=== PATIENT | female | born 1970 | race Caucasian/White ===

== ENCOUNTER 2021-04-28 20:48 | Emergency (ER) | payer OTHER ==
--- OUTSIDE RECORDS SUMMARY | 2021-04-28 20:51 | XMS REPORT | Continuity of Care Document ---
:1970 Author Organization [facility] t Address [facility] [place] [address] Care Team Providers Name Role Phone Anand_F Attending Clinician Unavailable Anand_F Admitting Clinician Unavailable Payers Payer Name Policy Type Policy Number Effective Date Expiration Date S ource [employer] - [employer] [id number] () Problems This patient has no known problems. Allergies, Adverse Reactions, Alerts Allergy Allergy Status Severity Reaction(s) Onset Inactive Treating Comm ents Source Name Type Date Date Clinician Lisinopr Allergy Active [facility] Social History Smoking Status Start Date Stop Date Source Heavy Tobacco Smoker Naila Conteh [facility]kenn[facility] Medications Ordered Filled Start Stop Current Ordering Indication Dosage Frequency Signature Comments Components Source Medication Medication Date Date Medication? Clinician (SIG) Name Name lorazepam lorazepam No lorazepam [facility] 0.5 mg 0.5 mg 0.5 mg da tablet 1 tablet 1 tablet 1 Med ical tab po prn. tab po prn. tab po Group prn. sertraline sertraline No sertraline [facility] 100 mg 100 mg 100 mg da tablet Take tablet Take tablet Medical 1 tablet 1 tablet Take 1 Group every day every day tablet by oral by oral every day route. route. by oral route. atenolol 50 atenolol 50 No atenolol [facility] mg tablet mg tablet 50 mg da TAKE ONE TAKE ONE tablet Medic al (1) (1) TAKE ONE Group TABLET(S) TABLET(S) (1) BY MOUTH BY MOUTH TABLET(S) ONCE A DAY. ONCE A DAY. BY MOUTH ONCE A DAY. 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) Group Body Weight 2019-12-09 00:00:00 2080 [oz_av] [facility] BP Diastolic 2019-05-27 00:00:00 96 mm[Hg] [facility] Height 2019-05-27 00:00:00 69 [in_i] [facility] BMI (Body Mass 2019-05-27 00:00:00 19.2 kg/m2 [facility]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) Group BP Systolic 2019-05-27 00:00:00 163 mm[Hg] [facility] Body Weight 2019-05-27 00:00:00 2083 [oz_av] [facility] Procedures Procedure Date / Time Performed Performing Clinician [facility] e MAMMO, screening, 2019-05-27 00:00:00 [facility], bilateral Group Tubal [facility] Plan of Care Planned Activity Planned Date Details Comments Source Diagnostic Test 2020-08-21 lipid panel, serum [facility] Pending 00:00:00 [code = lipid panel, Group serum] Diagnostic Test 2020-08-21 CMP, serum or plasma [facility] Pending 00:00:00 [code = CMP, serum Group or plasma] Diagnostic Test 2020-08-21 hemoglobin A1c, QN, [facility] Pending 00:00:00 blood [code = Group hemoglobin A1c, QN, blood] Diagnostic Test 2020-08-21 colon cancer [facility] Pending 00:00:00 screening, stool Group [code = colon cancer screening, stool] Encounters Start End Encounter Admission Attending Care Care Encounter Source Date/Time Date/Time Type Type Clinicians Facility Department ID 2020-08-22 2020-08-22 Outpatient [facility] [id number] [facility] 10:36:00 10:36:00 [facility] 2020-08-21 2020-08-21 Outpatient [facility] [id number] [facility] 04:17:00 04:17:00 [facility]26 [facility] 2020-08-21 2020-08-21 [facility] [place] - [id number] [facility] 00:00:00 00:00:00 N[facility] Medical MD: [address] [place] [address] [address], [place] [address] , Ph. 2020-03-15 2020-03-15 Outpatient [facility] [id number] [facility] 02:20:00 02:20:00 0415 [facility] 2020-03-15 2020-03-15 Outpatient [facility]F [facility] MM[facility] [id number] [facility] 02:20:00 02:20:00 0423 [facility] 2020-03-15 2020-03-15 Outpatient [facility]_F [facility] MMG [id number] [facility] 02:20:00 02:20:00 [facility]8 [facility] 2020-02-07 2020-02-07 Outpatient [facility]_F [facility] MMG [id number] [facility] 04:02:00 04:02:00 1012 [facility] 2019-12-09 2019-12-09 Outpatient [facility]_F [facility] MMG [id number] [facility] 07:48:00 07:48:00 0813 [facility] 2019-12-09 2019-12-09 [facility] [place] - [id number] [facility] 00:00:00 00:00:00 Britton Johnson MD: [address] [place] [address], [place] [address] , Ph. 2019-05-29 2019-05-29 Outpatient [facility]F [facility] MMG [id number] [facility] 09:51:00 09:51:00 0201 Medical Group 2019-05-27 2019-05-27 Outpatient [facility]_F [facility] MMG [id number] [facility] 05:02:00 05:02:00 0130 Medical Group 2019-05-27 2019-05-27 [facility] [place] - [id number] [facility] 00:00:00 00:00:00 Britton Johnson MD: [address] [place] [address], [place] [address] , Ph. 2018-10-08 2018-10-08 Outpatient [facility]_F [facility] MMG [id number] [facility] 05:11:00 05:11:00 0129 Medical Group Results This patient has no known results.
[2021-04-29] MEDS ORDERED: ONDANSETRON 4 MG/2 ML VIAL ONE (03:07)
[2021-04-29] MEDS ORDERED: MORPHINE 4 MG/ML SYR ONE (03:07)
[2021-04-29 03:12] LABS: Urine Blood Negative (Negative); Urine Glucose Negative (Negative); Urine Protein Negative (Negative); Urine Specific Gravity <=1.005 (1.005-1.030); Urine pH 5.5 (5.0-7.0)
[2021-04-29 03:13] LABS: Hematocrit 41.3 % (36.0-45.0); Lymphocytes % 25.3 % (15.3-44.8); MPV 6.8 fL (7.6-11.3); RBC Red Blood Cell Count 4.35 M/uL (3.86-4.86)
[2021-04-29 03:36] LABS: ALT/SGPT 23 U/L (12-78); AST/SGOT 23 U/L (15-37); Albumin 3.9 g/dL (3.4-5.0); Alkaline Phosphatase 90 U/L (45-117); BUN Blood Urea Nitrogen 10 mg/dL (7-18); Bicarbonate 28 mmol/L (21-32); Bilirubin Direct < 0.1 mg/dL (0-0.2); Bilirubin Total 0.3 mg/dL (0.2-1.0); Glucose Level 101 mg/dL (74-106); Magnesium 1.9 mg/dL (1.8-2.4); NT PRO-BNP 430 pg/mL (<125); Potassium 3.8 mmol/L (3.5-5.1); Protein, Total 7.9 g/dL (6.4-8.2); Sodium Level 130 mmol/L (136-145); Troponin (Emerg Dept Use Only) < 0.02 ng/mL (0.0-0.045)
[2021-04-29 03:37] LABS: Barbiturates NEGATIVE (NEGATIVE); Benzodiazepines NEGATIVE (NEGATIVE); Cocaine NEGATIVE (NEGATIVE); METHAMPHETAM NEGATIVE (NEGATIVE); Methadone NEGATIVE (NEGATIVE); Opiates NEGATIVE (NEGATIVE); Phencyclidine NEGATIVE (NEGATIVE); THC Cannibis NEGATIVE (NEGATIVE)
[2021-04-29 04:07] LABS: SARS-COV-2 RT PCR NEGATIVE (NEGATIVE)
--- NOTE | 2021-04-29 06:40 | ER ---
Nurse's Notes [facility] Name: Hilda Yuan Age: 51 yrs Sex: Female : 1970 Arrival Date: 04/28/2021 Time: 20:51 Bed 12 Private MD: Diagnosis: Chest pain, unspecified;Palpitations Presentation: 04/28 22:53 Chief complaint: Patient states: her chest has been tight all day and her heart was bb beating too fast she is SOB and shaky. Coronavirus screen: shortness of breath. Ebola Screen: No symptoms or risks identified at this time. Initial Sepsis Screen: Does the patient meet any 2 criteria? No. Patient's initial sepsis screen is negative. Does the patient have a suspected source of infection? No. Patient's initial sepsis screen is negative. Risk Assessment: Do you want to hurt yourself or someone else? Patient reports no desire to harm self or others. Onset of symptoms was April 28, 2021. 22:53 Method Of Arrival: Ambulatory bb 22:53 Acuity: MARTIR 3 bb Triage Assessment: 22:55 General: Appears in no apparent distress. uncomfortable, Behavior is anxious. Pain: bb Denies pain. Neuro: Level of Consciousness is awake, alert, obeys commands, Oriented to person, place, time, situation. Cardiovascular: Capillary refill < 3 seconds Patient's skin is warm and dry. Rhythm is sinus rhythm. Respiratory: Reports shortness of breath Onset: The symptoms/episode began/occurred today, the patient has mild shortness of breath. GI: No signs and/or symptoms were reported involving the gastrointestinal system. Derm: Skin is pink, warm \\T\\ dry. Musculoskeletal: Circulation, motion, and sensation intact. 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 - Social history:: Smoking status: Patient reports the use of cigarette tobacco products, smokes one pack cigarettes per day. Screenin/02 02:20 Abuse screen: Denies threats or abuse. Nutritional screening: No deficits noted. bb Tuberculosis screening: No symptoms or risk factors identified. Fall Risk None identified. Assessment: 02:20 Reassessment: No changes from previously documented assessment. Patient is alert, bb oriented x 3, equal unlabored respirations, skin warm/dry/pink. see triage assessment. 03:15 Reassessment: Patient is alert, oriented x 3, equal unlabored respirations, skin bb warm/dry/pink. pt refused morphine and zofran states "I just want something to make my blood pressure go down" Dr Rizzo notified no new orders received. 03:56 Reassessment: Patient is alert, oriented x 3, equal unlabored respirations, skin bb warm/dry/pink. IV site intact, no erythema or edema noted. 06:53 Reassessment: Patient is alert, oriented x 3, equal unlabored respirations, skin bb warm/dry/pink. pt verbalized understanding of and agrees to plan of care discharge instructions given pt ambulated with steady gait to exit accompanied by spouse. Vital Signs: 04/28 22:53 BP 158 / 104; Pulse 71; Resp 18 S; Temp 98.2(O); Pulse Ox 98% on R/A; Weight 58.97 kg bb (R); Height 5 ft. 9 in. (175.26 cm) (R); Pain 0/10; 04/29 01:56 BP 181 / 96; Pulse 68; Resp 16; Temp 98.4; Pulse Ox 98% ; lt3 03:41 BP 149 / 82; Pulse 66; Resp 16; Temp 98.8; Pulse Ox 97% ; lt3 03:55 BP 125 / 86; Pulse 66; Resp 16 S; Pulse Ox 96% on R/A; bb 06:55 BP 107 / 71; Pulse 71; Resp 16 S; Pulse Ox 97% on R/A; bb 04/28 22:53 Body Mass Index 19.20 (58.97 kg, 175.26 cm) bb ED Course: 04/28 20:51 Patient arrived in ED. kc5 22:55 Triage completed. bb 22:55 Arm band placed on Patient placed in waiting room, Patient notified of wait time. bb 04/29 02:08 Chandra Rizzo MD is Attending Physician. [facility] 02:20 Patient has correct armband on for positive identification. bb 02:55 Initial lab(s) drawn, by me, sent to lab. Inserted saline lock: 22 gauge in left lt3 antecubital area, using aseptic technique. 03:03 XRAY Chest (1 view) In Process Unspecified. EDMS 03:09 Urine collected: clean catch specimen. lt3 03:21 COVID swab sent to lab. Flu and/or RSV swab sent to lab. lt3 03:21 COVID-19/FLU A+B Sent. lt3 03:32 COVID-19/FLU A+B (Document "Date of Onset" if Symptomatic) Sent. lt3 03:57 Isamar Vasquez, CHAD is Primary Nurse. bb 03:58 Magnesium Sent. bb 03:58 LFT's Sent. bb 05:51 Troponin (emerg Dept Use Only) Sent. mw2 06:41 See Montenegro MD is Referral Physician. [facility] 06:56 IV discontinued, intact, bleeding controlled, No redness/swelling at site. Pressure bb dressing applied. Administered Medications: 03:29 CANCELLED (Patient Refused): morphine 4 mg IVP once; RASS on ADMIN: Combtv4, Very bb Agttd3, Agttd2, Rstlss1, AlertClm0, Drwsy-1, Lt Sdtn-2, Mod Sdtn-3, Dp Sdtn-4, UnArsble-5 03:29 CANCELLED (Patient Refused): Zofran (Ondansetron) 4 mg IVP once; over 2 minutes bb Outcome: 06:40 Discharge ordered by . [facility] 06:56 Discharged to home ambulatory, with family. bb 06:56 Condition: stable 06:56 Discharge instructions given to patient, Instructed on discharge instructions, follow up and referral plans. Demonstrated understanding of instructions, follow-up care. 06:56 Patient left the ED. bb Signatures: Dispatcher [employer] EDIsamar Galeana, RN RN bb Maira Elena Merchant mw2 Chandra Rizzo MD MD [facility] Wendi Ross [address] lt3 Corrections: (The following items were deleted from the chart) 04/28 22:58 22:55 Allergies: NKA; bb bb
--- NOTE | 2021-04-29 06:41 | EDPHYS ---
Physician Documentation [facility] Name: Hilda Yuan Age: 51 yrs Sex: Female : 1970 Arrival Date: 04/28/2021 Time: 20:51 Bed 12 Private MD: ED Physician Chandra Rizzo HPI: 04/29 02:33 This 51 yrs old Female presents to ER via Ambulatory with complaints of Breathing mh7 Difficulty, Chest Tightness, Shortness Of Breath. 02:33 Onset: yesterday, Morning. The pain does not radiate. Associated signs and symptoms: mh7 Pertinent positives: palpitations, shortness of breath, Pertinent negatives: abdominal pain, cough, diaphoresis, dizziness, headache, lower extremity pain, lower extremity swelling, lightheadedness, nausea, near syncope, recent travel, syncope, vomiting. The chest pain is described as Tightness. Duration: The patient or guardian reports a single episode, that is still ongoing, and unchanged. Modifying factors: The symptoms are alleviated by nothing. the symptoms are aggravated by nothing. Severity of pain: At its worst the pain was moderate yesterday, in the emergency department the pain is unchanged. 02:33 The patient or guardian reports chest pain that is located primarily in the substernal mh7 area. 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 - Social history:: Smoking status: Patient reports the use of cigarette tobacco products, smokes one pack cigarettes per day. ROS: 04/29 02:33 Constitutional: Negative for fever, chills, and weight loss, Eyes: Negative for injury, mh7 pain, redness, and discharge, ENT: Negative for injury, pain, and discharge, Neck: Negative for injury, pain, and swelling, Abdomen/GI: Negative for abdominal pain, nausea, vomiting, diarrhea, and constipation, Back: Negative for injury and pain, : Negative for injury, bleeding, discharge, and swelling, MS/Extremity: Negative for injury and deformity, Skin: Negative for injury, rash, and discoloration, Neuro: Negative for headache, weakness, numbness, tingling, and seizure, Allergy/Immunology: Negative for hives, rash, and allergies, Endocrine: Negative for neck swelling, polydipsia, polyuria, polyphagia, and marked weight changes, Hematologic/Lymphatic: Negative for swollen nodes, abnormal bleeding, and unusual bruising. Psych: Positive for anxiety. Exam: 02:33 Head/Face: Normocephalic, atraumatic. Eyes: Pupils equal round and reactive to light, mh7 extra-ocular motions intact. Lids and lashes normal. Conjunctiva and sclera are non-icteric and not injected. Cornea within normal limits. Periorbital areas with no swelling, redness, or edema. Neck: Trachea midline, no thyromegaly or masses palpated, and no cervical lymphadenopathy. Supple, full range of motion without nuchal rigidity, or vertebral point tenderness. No Meningismus. Chest/axilla: Normal chest wall appearance and motion. Nontender with no deformity. No lesions are appreciated. Cardiovascular: Regular rate and rhythm with a normal S1 and S2. No gallops, murmurs, or rubs. Normal PMI, no JVD. No pulse deficits. Respiratory: Lungs have equal breath sounds bilaterally, clear to auscultation and percussion. No rales, rhonchi or wheezes noted. No increased work of breathing, no retractions or nasal flaring. Abdomen/GI: Soft, non-tender, with normal bowel sounds. No distension or tympany. No guarding or rebound. No evidence of tenderness throughout. Back: No spinal tenderness. No costovertebral tenderness. Full range of motion. Skin: Warm, dry with normal turgor. Normal color with no rashes, no lesions, and no evidence of cellulitis. MS/ Extremity: Pulses equal, no cyanosis. Neurovascular intact. Full, normal range of motion. Neuro: Awake and alert, GCS 15, oriented to person, place, time, and situation. Cranial nerves II-XII grossly intact. Motor strength 5/5 in all extremities. Sensory grossly intact. Cerebellar exam normal. Normal gait. 02:33 Constitutional: The patient appears in no acute distress, alert, awake, anxious. 02:33 Psych: Behavior/mood is cooperative, anxious, Oriented to person, place, time, Patient has no thoughts/intents to harm self or others. Judgement / Insight is normal. Memory is normal. Delusions/hallucinations are not present. Vital Signs: 04/28 22:53 BP 158 / 104; Pulse 71; Resp 18 S; Temp 98.2(O); Pulse Ox 98% on R/A; Weight 58.97 kg bb (R); Height 5 ft. 9 in. (175.26 cm) (R); Pain 0/10; 04/29 01:56 BP 181 / 96; Pulse 68; Resp 16; Temp 98.4; Pulse Ox 98% ; lt3 03:41 BP 149 / 82; Pulse 66; Resp 16; Temp 98.8; Pulse Ox 97% ; lt3 03:55 BP 125 / 86; Pulse 66; Resp 16 S; Pulse Ox 96% on R/A; bb 06:55 BP 107 / 71; Pulse 71; Resp 16 S; Pulse Ox 97% on R/A; bb 04/28 22:53 Body Mass Index 19.20 (58.97 kg, 175.26 cm) bb MDM: 06:38 Differential diagnosis: acute myocardial infarction, acute pericarditis, anxiety, mh7 coronary artery disease chest wall pain, congestive heart failure cholecystitis, Cholelithiasis costochondritis, esophagitis, gastritis, gastroesophageal reflux disease (GERD), pancreatitis, pericarditis, pneumonia, pneumothorax, pulmonary embolus. HEART Score: History: Slightly Suspicious (0), ECG: Normal (0), Age: > 45 and < 65 years (1), Risk Factors: 1 or 2 risk factors (1), [Hypertension] Troponin: < or = 1 x Normal Limit (0), Total Score = 2. The patient was not given aspirin in the Emergency Department. Patient reports taking aspirin within the past 24 hours. Data reviewed: vital signs, nurses notes, old medical records, lab test result(s), cardiac enzymes, CBC, electrolytes, urinalysis, EKG, radiologic studies, plain films. Data interpreted: Pulse oximetry: on room air is 98 %. Interpretation: normal. Counseling: I had a detailed discussion with the patient and/or guardian regarding: the historical points, exam findings, and any diagnostic results supporting the discharge/admit diagnosis, lab results, radiology results, the need for outpatient follow up, to return to the emergency department if symptoms worsen or persist or if there are any questions or concerns that arise at home. Response to treatment: the patient's symptoms have resolved after treatment, the patient's blood pressure is in an acceptable range, mental status has returned to baseline, the patient no longer shows bradycardia, the patient is not short of breath, the patient is not tachycardic, the patient's pain is gone, the patient's temperature has normalized, the patient is now symptom free, patient is well hydrated. 06:40 Patient medically screened. [facility] 04/29 02:32 Order name: Basic Metabolic Panel [facility] 04/29 02:32 Order name: CBC with Diff [facility] 04/29 02:32 Order name: LFT's [facility] 04/29 02:32 Order name: Magnesium [facility] 04/29 02:32 Order name: NT PRO-BNP; Complete Time: 04:21 [facility] 04/29 02:32 Order name: PT-INR; Complete Time: 03:19 [facility] 04/29 02:32 Order name: Troponin (emerg Dept Use Only); Complete Time: 04:21 [facility] 04/29 02:32 Order name: ETOH Level; Complete Time: 03:27 [facility] 04/29 02:32 Order name: UDS; Complete Time: 03:56 [facility] 04/29 02:33 Order name: Basic Metabolic Panel; Complete Time: 04:21 [facility] 04/29 02:33 Order name: CBC with Automated Diff; Complete Time: 03:19 [facility] 04/29 02:33 Order name: Liver (Hepatic) Function; Complete Time: 04:21 [facility] 04/29 02:33 Order name: Magnesium; Complete Time: 04:21 [facility] 04/29 02:39 Order name: Lipase; Complete Time: 03:27 [facility] 04/29 02:32 Order name: XRAY Chest (1 view) [facility] 04/29 02:32 Order name: EKG; Complete Time: 02:33 [facility] 04/29 02:32 Order name: EKG - Nurse/Tech; Complete Time: 02:57 [facility] 04/29 02:44 Order name: TSH [facility] 04/29 02:44 Order name: COVID-19/FLU A+B (Document "Date of Onset" if Symptomatic) [facility] 04/29 02:45 Order name: COVID-19/FLU A+B; Complete Time: 04:21 [facility] 04/29 03:09 Order name: D-Dimer; Complete Time: 03:19 [facility] 04/29 03:09 Order name: Thyroid Stimulating Hormone; Complete Time: 04:21 [facility] 04/29 03:11 Order name: Urine Dipstick-Ancillary; Complete Time: 03:19 [facility] 04/29 03:55 Order name: T4 Free; Complete Time: 04:21 [facility] 04/29 05:29 Order name: Troponin (emerg Dept Use Only); Complete Time: 06:36 [facility] 04/29 02:32 Order name: IV Saline Lock; Complete Time: 02:56 [facility] 04/29 02:32 Order name: Labs collected and sent; Complete Time: 02:56 [facility] 04/29 02:32 Order name: O2 Per Protocol; Complete Time: 03:58 [facility] 04/29 02:32 Order name: O2 Sat Monitoring; Complete Time: 03:58 [facility] 04/29 02:32 Order name: Urine Dipstick-Ancillary (obtain specimen); Complete Time: 03:09 [facility] Administered Medications: 03:29 CANCELLED (Patient Refused): morphine 4 mg IVP once; RASS on ADMIN: Combtv4, Very bb Agttd3, Agttd2, Rstlss1, AlertClm0, Drwsy-1, Lt Sdtn-2, Mod Sdtn-3, Dp Sdtn-4, UnArsble-5 03:29 CANCELLED (Patient Refused): Zofran (Ondansetron) 4 mg IVP once; over 2 minutes bb Disposition Summary: 04/29/21 06:40 Discharge Ordered Location: Home [facility] Problem: new [facility] Symptoms: are resolved [facility] Condition: Stable [facility] Diagnosis - Chest pain, unspecified 7 - Palpitations [facility] Followup: [facility] - With: Private Physician - When: 1 - 2 days - Reason: Worsening of condition, Recheck today's complaints, Continuance of care, Re-evaluation by your physician Followup: [facility] - With: See Montenegro MD - When: 1 - 2 days - Reason: Worsening of condition, Recheck today's complaints Discharge Instructions: - Discharge Summary Sheet [facility] - Nonspecific Chest Pain, Adult, Jieb-sf-Obpt 7 - Palpitations, Rciw-va-Cdzp [facility] Forms: - Medication Reconciliation Form [facility] - Thank You Letter [facility] - Antibiotic Education [facility] - Prescription Opioid Use [facility] Signatures: Dispatcher [employer] EDMS Isamar Vasquez RN RN bb Chandra Rizzo MD MD [facility] Corrections: (The following items were deleted from the chart) 04/28 22:58 22:55 Allergies: NKA; ingrid quintero 04/29 02:39 02:33 The patient or guardian reports chest pain that is located primarily in the [facility] anterior chest wall, bilaterally, [facility] 03:09 02:45 Thyroid Stimulating Hormone ordered. EDMS EDMS 03:09 02:45 D-DIMER+COAG.LAB.BRZ ordered. EDMO EDMS 03:29 02:40 morphine 4 mg IVP once; RASS on ADMIN: Combtv4, Very Agttd3, Agttd2, Rstlss1, bb AlertClm0, Drwsy-1, Lt Sdtn-2, Mod Sdtn-3, Dp Sdtn-4, UnArsble-5 ordered. [facility] 03:29 02:40 Zofran (Ondansetron) 4 mg IVP once; over 2 minutes ordered. [facility] ingrid
[2021-04-29 07:11] VITALS: TEMP 98.8
[2021-04-29 07:14] VITALS: BP 107/71; O2SAT 97
--- NOTE | 2021-04-29 07:35 | RAD REPORT ---
EXAM DESCRIPTION: RAD - Chest Single View - 04/29/2021 3:03 am CLINICAL HISTORY: CHEST PAIN COMPARISON: Chest Single View dated 06/25/2017; Chest Single View dated 05/24/2017; Head C Spine Cap W Con dated 05/24/2017 FINDINGS: Lines: None. Lungs: No evidence of edema or pneumonia. Emphysematous changes. Pleural: No significant pleural effusions or pneumothorax. Cardiac: The heart size is within normal limits. Bones: No acute fractures. Other: IMPRESSION: No acute cardiopulmonary disease. The patient may be a candidate for annual low dose lung cancer screening CT.
== END 2021-04-29 06:56 | disposition home or self-care (01) ==
LOC: ER 20:48
DX: R00.2 Palpitations (principal); I10 Essential (primary) hypertension; F41.9 Anxiety disorder, unspecified; F17.210 Nicotine dependence, cigarettes, uncomplicated; Z98.82 Breast implant status; Z20.822 Contact with and (suspected) exposure to COVID-19
CPT/HCPCS: 93005; 85025; 80048; 36415; 80320; 83735; 85610; 85379; 80076; 84443; 81003; 84484 ×2; 84439; 83690; 83880; 0240U; 80307; 71045; 99284; J2405

== ENCOUNTER 2022-05-30 13:32 | Emergency (ER) | payer OTHER ==
--- OUTSIDE RECORDS SUMMARY | 2022-05-30 13:34 | XMS REPORT | Continuity of Care Document ---
:1970 Author Organization [facility] t Address [facility] [place] [address] Care Team Providers Name Role Phone ALENA DUFFY Attending Clinician Unavailable Carolyn Attending Clinician Unavailable Dina Attending Clinician Unavailable Carolyn Admitting Clinician Unavailable Dina Admitting Clinician Unavailable Payers Payer Name Policy Type Policy Number Effective Date Expiration Date S ource [employer]AST - [employer] [id number] - PRIME () [employer] - [employer] [id number] () Problems This patient has no known problems. Allergies, Adverse Reactions, Alerts Allergy Allergy Status Severity Reaction(s) Onset Inactive Treating Comm ents Source Name Type Date Date Clinician Lisinopr Allergy Active [facility] [place] [facility] e [facility] Social History Smoking Status Start Date Stop Date Source Heavy Tobacco Smoker [facility] Medications Ordered Filled Start Stop Current Ordering Indication Dosage Frequency Signature Comments Components Source Medication Medication Date Date Medication? Clinician (SIG) Name Name amlodipine amlodipine No amlodipine [facility] 5 mg tablet 5 mg tablet 5 mg d a TAKE ONE TAKE ONE tablet Medic al (1) (1) TAKE ONE Group TABLET(S) TABLET(S) (1) BY MOUTH BY MOUTH TABLET(S) ONCE A DAY. ONCE A DAY. BY MOUTH ONCE A DAY. atenolol 50 atenolol 50 No atenolol [facility] mg tablet mg tablet 50 mg da TAKE ONE TAKE ONE tablet Medic al (1) (1) TAKE ONE Group TABLET(S) TABLET(S) (1) BY MOUTH BY MOUTH TABLET(S) ONCE A DAY. ONCE A DAY. BY MOUTH ONCE A DAY. lorazepam lorazepam No lorazepam [facility] 0.5 mg 0.5 mg 0.5 mg da tablet 1 tablet 1 tablet 1 Med ical tab po prn. tab po prn. tab po Group prn. sertraline sertraline No sertraline [facility] 100 mg 100 mg 100 mg da tablet Take tablet Take tablet Medical 1.5 tablet 1.5 tablet Take 1.5 Group every day every day tablet by oral by oral every day route. route. by oral route. Abilify 5 Abilify 5 No 1 Q1D Abilify 5 [facility] mg tablet mg tablet mg tablet da Take 1 Take 1 Take 1 Medical tablet tablet tablet Group every day every day every day by oral by oral by oral route for route for route for 90 days. 90 days. 90 days. amlodipine amlodipine No 1 Q1D amlodipine [facility] 5 mg tablet 5 mg tablet 5 mg d a Take 1 Take 1 tablet Medical tablet tablet Take 1 Group every day every day tablet by oral by oral every day route for route for by oral 30 days. 30 days. route for 30 days. atenolol 50 atenolol 50 No atenolol [facility] mg tablet mg tablet 50 mg da TAKE ONE TAKE ONE tablet Medic al (1) (1) TAKE ONE Group TABLET(S) TABLET(S) (1) BY MOUTH BY MOUTH TABLET(S) ONCE A DAY. ONCE A DAY. BY MOUTH ONCE A DAY. lorazepam lorazepam No lorazepam [facility] 0.5 mg 0.5 mg 0.5 mg da tablet 1 tablet 1 tablet 1 Med ical tab po prn. tab po prn. tab po Group prn. sertraline sertraline No sertraline [facility] 100 mg 100 mg 100 mg da tablet Take tablet Take tablet Medical 1.5 tablet 1.5 tablet Take 1.5 Group every day every day tablet by oral by oral every day route. route. by oral route. Immunizations Ordered Immunization Filled Immunization Date Status Commen ts Source Name Name Tdap Tdap 2020-08-22 Completed [facility] Vital Signs Vital Name Observation Time Observation Value Comments Source BP Diastolic 2022-01-24 00:00:00 80 mm[Hg] [facility] Height 2022-01-24 00:00:00 69 [in_i] [facility] BMI (Body Mass 2022-01-24 00:00:00 22 kg/m2 [facility] Medical Index) Group BP Systolic 2022-01-24 00:00:00 127 mm[Hg] [facility] Body Weight 2022-01-24 00:00:00 2384 [oz_av] [facility] BP Diastolic 2021-08-31 00:00:00 84 mm[Hg] [facility] Height 2021-08-31 00:00:00 69 [in_i] [facility] BMI (Body Mass 2021-08-31 00:00:00 20 kg/m2 [facility] Medical Index) Group BP Systolic 2021-08-31 00:00:00 135 mm[Hg] [facility] Body Weight 2021-08-31 00:00:00 2171.2 [oz_av] [facility] BMI (Body Mass 2020-08-21 00:00:00 20.7 kg/m2 [facility] Medical Index) Group BP Systolic 2020-08-21 00:00:00 132 mm[Hg] [facility] Body Weight 2020-08-21 00:00:00 2241 [oz_av] [facility] BP Diastolic 2020-08-21 00:00:00 79 mm[Hg] [facility] Height 2020-08-21 00:00:00 69 [in_i] [facility] Height 2019-12-09 00:00:00 69 [in_i] [facility] BMI (Body Mass 2019-12-09 00:00:00 19.2 kg/m2 [facility] Medical Index) Group Body Weight 2019-12-09 00:00:00 2080 [oz_av] [facility] BP Diastolic 2019-05-27 00:00:00 96 mm[Hg] [facility] Height 2019-05-27 00:00:00 69 [in_i] [facility] BMI (Body Mass 2019-05-27 00:00:00 19.2 kg/m2 [facility] BP Systolic 2019-05-27 00:00:00 163 mm[Hg] [facility] Body Weight 2019-05-27 00:00:00 2083 [oz_av] [facility] Procedures Procedure Date / Time Performed Performing Clinician [facility] e MRI, cervical spine, 2022-01-24 00:00:00 [facility] MRI, thoracic spine, 2022-01-24 00:00:00 [facility] MRI, lumbar spine, w/o 2022-01-24 00:00:00 [facility] contrast [facility] DEXA 2021-08-31 00:00:00 [facility] MAMMO, screening, 2021-08-31 00:00:00 [facility] digital, bilateral Group LDCT, chest, for lung 2021-08-31 00:00:00 [facility] cancer screening Group MAMMO, screening, 2019-05-27 00:00:00 [facility] digital, bilateral Group Tubal Ligation [facility] Delivery [facility] Breast Surgery [facility] Plan of Care Planned Activity Planned Date Details Comments Source Diagnostic Test Pending 2022-01-24 BMP, serum or [facility] 00:00:00 plasma [code = Group BMP, serum or plasma] Instructions [facility] Encounters Start End Encounter Admission Attending Care Care Encounter Source Date/Time Date/Time Type Type Clinicians Facility Department ID 2022-02-12 Inpatient TODD DUFFY [facility] [id number] [facility] 14:00:00 [id number] [facility] 2022-02-08 Inpatient TODD DUFFY [facility] [id number] [facility] 13:00:00 [id number] [facility] 2022-01-28 2022-01-28 Outpatient AyalaWero [facility] MM[facility] [id number] [facility] 00:00:00 00:00:00 1003 [facility] 2022-01-24 2022-01-24 Outpatient Hawkins_M [facility] MMG [id number] -[id number] [facility] 00:00:00 00:00:00 0929 [facility] 2022-01-24 2022-01-24 Alena [facility] [place] - [id number] [facility] 00:00:00 00:00:[address] 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 2021-10-11 2021-10-11 Outpatient Hawkins_M [facility] MMG [id number] -[id number] [facility] 00:00:00 00:00:00 0616 [facility] 2021-09-06 2021-09-06 Outpatient Hawkins_M [facility] MMG [id number] -2021 [facility] 02:21:00 02:21:00 0512 Medical Group 2021-08-31 2021-08-31 Alena Citlallikins_M MMG [place] - [id number] [facility] 00:00:00 00:00:00 Tricia Jang [address] 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 2020-08-22 2020-08-22 Outpatient Zuniga_F MM[facility] MMG [id number] [facility] 10:36:00 10:36:00 0427 Medical Group 2020-08-21 2020-08-21 Concepcion Zuniga_F MMG [place] - [id number] [facility] 00:00:00 00:00:00 Nir Jang 0426 Britton Henley Medical MD: [address] [address], [place] [address] , Ph. 2020-03-15 2020-03-15 Outpatient Zuniga_F MMG MMG [id number] [facility] 02:20:00 02:20:00 1118 Medical Group 2020-02-07 2020-02-07 Outpatient Zuniga_F MMG MMG [id number] [facility] 04:02:00 04:02:00 1012 mp Medical Group 2019-12-09 2019-12-09 Concepcion Zuniga_F MMG [place] - [id number] [facility] 00:00:00 00:00:00 Nir Jang 0813 Britton Henley Medical MD: [address] [address], [place] [address] , Ph. 2019-05-29 2019-05-29 Outpatient Zuniga_F MMG MMG [id number] [facility] 09:51:00 09:51:00 0201 mp Medical Group 2019-05-27 2019-05-27 Concepcion Zuniga_F MMG [place] - [id number] [facility] 00:00:00 00:00:00 Nir Jang 0130 Britton Henley MD: [address] [address] , Ph. 2018-10-08 2018-10-08 Outpatient Zuniga_F MMG MMG [id number] [facility] 05:11:00 05:11:00 0613 Medical Group Results This patient has no known results.
[2022-05-30] MEDS ORDERED: ONDANSETRON 4 MG/2 ML VIAL ONE (14:03)
[2022-05-30] MEDS ORDERED: MORPHINE 4 MG/ML SYR ONE (14:04)
[2022-05-30 14:07] LABS: Urine Blood Negative (Negative); Urine Glucose Negative (Negative); Urine Protein Negative (Negative); Urine pH 5.5 (5.0-7.0)
[2022-05-30 14:19] LABS: Urine Bacteria <20 /HPF (<20); Urine RBC <5 /HPF (None Seen)
[2022-05-30 14:21] LABS: Absolute Lymphocytes (CBC) 1.3 K/uL (0.7-4.9); Hematocrit 35.9 % (36.0-45.0); Lymphocytes % 14.2 % (15.3-44.8); MCV 94.4 fL (80-100); MPV 6.8 fL (7.6-11.3)
[2022-05-30 14:29] LABS: Albumin 3.8 g/dL (3.4-5.0); Bilirubin Total 0.5 mg/dL (0.2-1.0); Potassium 3.4 mmol/L (3.5-5.1); Protein, Total 7.9 g/dL (6.4-8.2)
--- NOTE | 2022-05-30 14:47 | RAD REPORT ---
EXAM DESCRIPTION: CTAbdomen Pelvis W Contrast - 05/30/2022 2:38 pm CLINICAL HISTORY: Abdominal pain. Right flank pain COMPARISON: No comparisons TECHNIQUE: Biphasic CT imaging of the abdomen and pelvis was performed with 100 ml non-ionic IV cont rast. All CT scans are performed using dose optimization technique as appropriate and may include automated exposure control or mA/KV adjustment according to patient size. FINDINGS: The lung bases are clear. The liver, spleen, pancreas, adrenal glands are within normal limits. Enhancing uroepithelium noted b ilaterally. No pyelonephritis findings. No bowel obstruction, free air, free fluid or abscess. The appendix is normal. No evidence of signi ficant lymphadenopathy. No suspicious bony findings. IMPRESSION: Findings are most compatible with ascending urinary tract infection without pyelonephrit is.
--- NOTE | 2022-05-30 15:12 | EDPHYS ---
Physician Documentation [facility] Name: Hilda Yuan Age: 52 yrs Sex: Female : 1970 Arrival Date: 05/30/2022 Time: 13:36 Bed 5 Private MD: ED Physician Brett Victoria HPI: 05/30 13:49 This 52 yrs old Female presents to ER via Ambulatory with complaints of Flank Pain. pm1 13:49 The patient complains of pain in the right low back. The pain does not radiate. Onset: pm1 The symptoms/episode began/occurred yesterday. Modifying factors: The symptoms are alleviated by nothing. the symptoms are aggravated by nothing. Associated signs and symptoms: Pertinent positives: Dysuria yesterday, Pertinent negatives: fever, nausea, vomiting. Severity of pain: in the emergency department the pain has improved Pain is sporadic right lower flank spasming. The patient has not experienced similar symptoms in the past. The patient has not recently seen a physician. RN AMBULATORY: 13:44 LMP N/A - Post-menopause ss Historical: - Allergies: 13:44 Erythromycin; vomiting; ss - PMHx: 13:44 Anxiety; Hypertension; ss - PSHx: 13:44 breast augmentation; section; dental; Ligation of fallopian tube; right arm ss surgery; - Immunization history:: Client reports receiving the 2nd dose of the Covid vaccine. - Social history:: Smoking status: Patient/guardian denies using tobacco, Stopped _ months ago 4. ROS: 13:49 Constitutional: Negative for fever, chills, and weight loss, Cardiovascular: Negative pm1 for chest pain, palpitations, and edema, Respiratory: Negative for shortness of breath, cough, wheezing, and pleuritic chest pain. 13:49 MS/Extremity: Negative for injury and deformity, Skin: Negative for injury, rash, and discoloration, Neuro: Negative for headache, weakness, numbness, tingling, and seizure. 13:49 Back: Positive for flank pain, on the right, Negative for radiated pain. 13:49 : Positive for Dysuria yesterday that has resolved. 13:49 All other systems are negative. Exam: 13:49 Constitutional: This is a well developed, well nourished patient who is awake, alert, pm1 and in no acute distress. Head/Face: Normocephalic, atraumatic. 13:49 Skin: Warm, dry with normal turgor. Normal color with no rashes, no lesions, and no evidence of cellulitis. MS/ Extremity: Pulses equal, no cyanosis. Neurovascular intact. Full, normal range of motion. 13:49 ENT: Exam is negative for acute changes, Mouth: no acute changes, Lips: normal, moist, Oral mucosa: normal, pink and intact, moist. 13:49 Cardiovascular: Exam negative for acute changes, Rate: normal, Rhythm: regular, Pulses: no pulse deficits are appreciated. 13:49 Respiratory: Exam negative for acute changes, respiratory distress, shortness of breath. 13:49 Abdomen/GI: Inspection: abdomen appears normal, Palpation: abdomen is soft and non-tender, in all quadrants. 13:49 Back: CVA tenderness, that is mild, is noted on the right, vertebral tenderness, is not appreciated. 13:49 Neuro: Exam negative for acute changes, Orientation: is normal, Mentation: is normal, Motor: is normal, moves all fours, Gait: is steady, at a normal pace, without difficulty. Vital Signs: 13:44 Pulse 68; Resp 18; Temp 98.1(TE); Pulse Ox 99% on R/A; Weight 63.5 kg; Height 5 ft. 9 ss in. (175.26 cm); Pain 0/10; 13:46 BP 134 / 94; ss 14:10 BP 115 / 79; Pulse 102; Pulse Ox 100% on R/A; ap3 13:44 Body Mass Index 20.67 (63.50 kg, 175.26 cm) MDM: 13:46 Patient medically screened. pm1 15:10 Data reviewed: vital signs. pm1 15:10 Differential diagnosis: pyelonephritis, UTI, muscle spasm, candidiasis. pm1 15:10 Counseling: I had a detailed discussion with the patient and/or guardian regarding: the pm1 historical points, exam findings, and any diagnostic results supporting the discharge/admit diagnosis, lab results, radiology results, the need for outpatient follow up, to return to the emergency department if symptoms worsen or persist or if there are any questions or concerns that arise at home. 05/30 13:46 Order name: CBC with Diff; Complete Time: 14:45 pm1 05/30 13:46 Order name: CMP; Complete Time: 14:45 pm1 05/30 13:46 Order name: Lipase; Complete Time: 14:45 pm1 05/30 13:46 Order name: Urine Microscopic Only; Complete Time: 14:45 pm1 05/30 14:08 Order name: Urine Dipstick-Ancillary; Complete Time: 14:45 EDMS 05/30 13:46 Order name: CT Abd/Pelvis - IV Contrast Only; Complete Time: 15:00 pm1 05/30 13:46 Order name: IV Saline Lock; Complete Time: 14:04 pm1 05/30 13:46 Order name: Labs collected and sent; Complete Time: 14:04 pm1 05/30 13:46 Order name: Urine Dipstick-Ancillary (obtain specimen); Complete Time: 14:04 pm1 Administered Medications: 14:04 Not Given (Patient Refused): Zofran (Ondansetron) 4 mg IVP once; over 2 minutes ap3 14:04 Not Given (Patient Refused): morphine 4 mg IVP once over 4 mins ap3 15:49 Drug: Rocephin (cefTRIAXone) 1 grams Route: IV; Rate: calculated rate; Site: left ap3 antecubital; 15:50 Follow up: IV Status: Infusion continued ap3 Disposition: 19:23 Co-signature as Attending Physician, Brett PATEL was immediately available on-site ms3 in the Emergency Department for consultation in the care of the patient. Disposition Summary: 05/30/22 15:11 Discharge Ordered Location: Home pm1 Problem: new pm1 Symptoms: have improved pm1 Condition: Stable pm1 Diagnosis - UTI/ Urinary tract infection, site not specified pm1 Followup: pm1 - With: Emergency Department - When: As needed - Reason: Worsening of condition Followup: pm1 - With: Private Physician - When: 2 - 3 days - Reason: Recheck today's complaints, Continuance of care, Re-evaluation by your physician Discharge Instructions: - Discharge Summary Sheet pm1 - Urinary Tract Infection, Adult pm1 Forms: - Medication Reconciliation Form pm1 - Thank You Letter pm1 - Antibiotic Education pm1 - Prescription Opioid Use pm1 Prescriptions: - Bactrim DS 800-160 mg Oral Tablet - take 1 tablet by ORAL route every 12 hours for 10 days; 20 tablet; Refills: 0, pm1 Product Selection Permitted Signatures: Dispatcher [facility] Helen Ledesma, RN RN ss Roland Jacobsen, SERVICE ADMINISTRATOR SERVICE ADMINISTRATOR pm1 Melissa Berry RN RN ap3 Brett Victoria DO DO ms3
--- NOTE | 2022-05-30 15:12 | ER ---
Nurse's Notes [facility] Name: Hilda Yuan Age: 52 yrs Sex: Female : 1970 Arrival Date: 05/30/2022 Time: 13:36 Bed 5 Private MD: Diagnosis: UTI/ Urinary tract infection, site not specified Presentation: 05/30 13:41 Chief complaint: Patient states: R flank pain that started last night. Pt reports she ss had UTI symptoms for a few hours 2 weeks ago. Coronavirus screen: Client denies travel out of the [place] in the last 14 days. Ebola Screen: Patient denies exposure to infectious person. Patient denies travel to an Ebola-affected area in the 21 days before illness onset. Initial Sepsis Screen: Does the patient meet any 2 criteria? No. Patient's initial sepsis screen is negative. Does the patient have a suspected source of infection? No. Patient's initial sepsis screen is negative. Risk Assessment: Do you want to hurt yourself or someone else? Patient reports no desire to harm self or others. Onset of symptoms was May 29, 2022. 13:41 Method Of Arrival: Ambulatory ss 13:41 Acuity: MARTIR 3 ss [employer]AURANT [employer] PERSON: 13:44 LMP N/A - Post-menopause ss Historical: - Allergies: 13:44 Erythromycin; vomiting; ss - PMHx: 13:44 Anxiety; Hypertension; ss - PSHx: 13:44 breast augmentation; section; dental; Ligation of fallopian tube; right arm ss surgery; - Immunization history:: Client reports receiving the 2nd dose of the Covid vaccine. - Social history:: Smoking status: Patient/guardian denies using tobacco, Stopped _ months ago 4. Screenin:11 [facility] ED Fall Risk Assessment (Adult) History of falling in the last 3 months, ap3 including since admission No falls in past 3 months (0 pts). Abuse screen: Denies threats or abuse. Nutritional screening: No deficits noted. Tuberculosis screening: No symptoms or risk factors identified. Assessment: 14:10 General: Appears in no apparent distress. comfortable, Behavior is anxious. Pain:. ap3 14:10 Pain: Complains of pain in right flank Pain began gradually, last night Is ap3 intermittent. Neuro: Level of Consciousness is awake, alert, obeys commands, Oriented to person, place, time, situation, Appropriate for age. Cardiovascular: Patient's skin is warm and dry. Respiratory: Airway is patent Respiratory effort is even, unlabored, Respiratory pattern is regular, symmetrical. Vital Signs: 13:44 Pulse 68; Resp 18; Temp 98.1(TE); Pulse Ox 99% on R/A; Weight 63.5 kg; Height 5 ft. 9 ss in. (175.26 cm); Pain 0/10; 13:46 BP 134 / 94; ss 14:10 BP 115 / 79; Pulse 102; Pulse Ox 100% on R/A; ap3 13:44 Body Mass Index 20.67 (63.50 kg, 175.26 cm) ss ED Course: 13:36 Patient arrived in ED. as 13:40 Roland Jacobsen NP is PHCP. pm1 13:40 Brett Victoria DO is Attending Physician. pm1 13:44 Triage completed. ss 13:44 Arm band placed on right wrist. ss 13:47 Melissa Berry, CHAD is Primary Nurse. ap3 14:12 Patient has correct armband on for positive identification. Bed in low position. Call ap3 light in reach. Side rails up X 1. Pulse ox on. NIBP on. Door closed. Noise minimized. 14:40 CT Abd/Pelvis - IV Contrast Only In Process Unspecified. EDMS 15:49 No provider procedures requiring assistance completed. IV discontinued, intact, ap3 bleeding controlled, No redness/swelling at site. Pressure dressing applied. Administered Medications: 14:04 Not Given (Patient Refused): Zofran (Ondansetron) 4 mg IVP once; over 2 minutes ap3 14:04 Not Given (Patient Refused): morphine 4 mg IVP once over 4 mins ap3 15:49 Drug: Rocephin (cefTRIAXone) 1 grams Route: IV; Rate: calculated rate; Site: left ap3 antecubital; 15:50 Follow up: IV Status: Infusion continued ap3 Medication: 14:11 VIS not applicable for this client. ap3 Outcome: 15:11 Discharge ordered by MD. pm1 15:49 Discharged to home ambulatory. ap3 15:49 Condition: good 15:49 Discharge instructions given to patient, Instructed on discharge instructions, follow up and referral plans. medication usage, Demonstrated understanding of instructions, follow-up care, medications, Prescriptions given X 1. 16:19 Patient left the ED. ap3 Signatures: Dispatcher [employer] EDMS Joana Shrestha Shelby, RN RN ss Roland Jacobsen, PROCESS CHECKER PROCESS CHECKER pm1 Melissa Berry RN RN ap3
[2022-05-30] MEDS ORDERED: CEFTRIAXONE 1000 MG/VIAL ONE (15:22)
[2022-05-30 16:30] VITALS: TEMP 98.1
[2022-05-30 16:46] VITALS: BP 115/79; O2SAT 100
== END 2022-05-30 16:19 | disposition home or self-care (01) ==
LOC: ER 13:32
DX: N39.0 Urinary tract infection, site not specified (principal); I10 Essential (primary) hypertension; Z88.3 Allergy status to other anti-infective agents; Z98.82 Breast implant status
CPT/HCPCS: 85025; 36415; 83690; 80053; 74177; 96374; 99284; Q9967; 81003; 81015; J2405

== ENCOUNTER 2023-03-21 13:51 | Emergency (ER) | payer OTHER ==
--- OUTSIDE RECORDS SUMMARY | 2023-03-21 13:55 | XMS REPORT | Continuity of Care Document ---
:1970 Author Organization [facility] t Address [address] [place] [address] [address] [place] [address] Care Team Providers Name Role Phone Miles Bernabe Primary Care Physician ALENA DUFFY Attending Clinician Unavailable Miles Bernabe Attending Clinician Doctor Unassigned, [place] Attending Clinician Unavailable MILES VERDUZCO Attending Clinician Unavailable Joesph Hastings MD Attending Clinician Pob, [facility] Attending Clinician Unavailable LYNDON VICNENT Attending Clinician Unavailable Lyndon Vincent MD Attending Clinician Marilia Morrissey MA Attending Clinician Unavailable CHRISTINE BRANTLEY Attending Clinician Unavailable CASSIDY ANTHONY Attending Clinician Unavailable Cassidy Montiel Attending Clinician Carolyn Attending Clinician Unavailable Dina Attending Clinician Unavailable LYNDON VINCENT Admitting Clinician Unavailable MILES VERDUZCO Admitting Clinician Unavailable CASSIDY ANTHONY Admitting Clinician Unavailable Carolyn Admitting Clinician Unavailable Dina Admitting Clinician Unavailable Payers Payer Name Policy Type Policy Number Effective Date Expiration Date Dc leesa [employer]AST - [employer] [id number] - PRIME () [employer] - [employer] [id number] () Problems This patient has no known problems. Allergies, Adverse Reactions, Alerts Allergy Allergy Status Severity Reaction(s) Onset Inactive Treating Comm ents Source Name Type Date Date Clinician ERYTHROM DRUG Active N/V Univers YCIN 10-08 ity of 00:00: [place] 00 Medical Branch Erythrom Propensi Active Nausea Univer s ycin ty to and/or 10-08 ity of adverse Vomiting 00:00: [place] reaction 00 Medical s Branch LISINOPR DRUG Active Unknown-Cmnt [place] INGREDI 07-04 ity of 00:00: Medical Branch Lisinopr Drug Active Unknown - Unive rs il Allergy See comments 07-04 ity of 00:00: 00 Medical Branch NO KNOWN Drug Active Univers ALLERGIE Class ity of S [facility] Lisinopr Allergy Active [place] [facility] Medical e Group Social History Social Habit Start Date Stop Date Quantity Comments Source History [facility] o f Housing Places [facility] Gender identity Universit y of [facility] Sexual orientation Univer sity of [facility] Exposure to 2022-09-27 2022-10-07 Not sure War of SARS-CoV-2 (event) 00:00:00 17:15:00 [facility] History SDOH 2022-10-07 2022-10-07 3 University o f Housing Unable to 00:00:00 00:00:00 [facility] edical Pay Branch History [facility] 2022-10-07 2022-10-07 3 War o f Housing Homeless 00:00:00 00:00:00 [facility] dical Last Year Branch Tobacco use and 2022-07-04 2022-07-04 Smokeless Universit y of exposure 00:00:00 00:00:00 tobacco non-user [facility] dical Branch Alcohol intake 2022-07-04 2022-07-04 4.43 /d University 00:00:00 00:00:00 [facility] History of Social 2022-07-04 2022-07-04 Univers ity of function 00:00:00 00:00:00 [facility] History of tobacco 2022-03-01 Cigarette Smoker [facility] 00:00:00 [facility] Sex Ass[birth year] At [birth year] Universit y of 00:00:00 00:00:00 [facility] Smoking Status Start Date Stop Date Source Heavy Tobacco Smoker [facility] Tobacco smoking [facility] xa consumption unknown Medical Bran ch Ex-smoker 2022-08-29 00:00:00 2022-08-29 University o [facility] [place] 00:00:00 [facility] Occasional tobacco smoker 2022-07-04 [facility]:00[facility] Ordered Filled Start Stop Current Ordering Indication Dosage Frequency Signature Comments Components Source Medication Medication Date Date Medication? Clinician (SIG) Name Name atenoloL 50 Yes [id number] 50mg Take 1 Univers mg tablet 7-10 tablet by ity o f 00:00: mouth in [place] 00 the Medical morning. Branch atenoloL 50 2022-0 Yes [id number] 50mg Take 1 Univers mg tablet 7-10 tablet by ity o f 00:00: mouth in [place] 00 the Medical morning. Branch atenoloL 50 2022-0 Yes [id number] 50mg Take 1 Univers mg tablet 7-05 tablet by ity o f 00:00: mouth in [place] 00 the Medical morning. Branch atenoloL 50 0 Yes [id number] 50mg Take 1 Univers mg tablet 7-05 tablet by ity o f 00:00: mouth in [place] 00 the Medical morning. Branch atenoloL 50 2022-0 2022- No [id number] 50mg Take 1 Univers mg tablet 7-05 07-10 tablet by ity of 00:00: 00:00 mouth in [place] 00 :00 the Medical morning. Branch ARIPiprazol 2022-0 2022- No 5mg Take 1 Uni vers e 5 mg 6-13 06-13 tablet by ity of tablet 14:05: 00:00 mouth in [place] 51 :00 the Medical morning. Branch ARIPiprazol 2022-0 2022- No 5mg Take 1 Uni vers e 5 mg 6-13 06-13 tablet by ity of tablet 14:05: 00:00 mouth in [place] 51 :00 the Medical morning. Branch naproxen 2022-0 2022- No [id number] 500mg Take 1 U nivers 500 mg -04 01-23 tablet by ity of tablet 00:00: 04:59 mouth in [place] 00 :00 the [facility] Branch and 1 tablet in the evening. Take with meals. Do all this for 10 days. HYDROcodone 0 3- No 4647 1{tbl} Take 1 U nivers -acetaminop 5-12 05-20 tablet by it y of hen 5-325 00:00: 04:59 mouth [place] mg tablet 00 :00 every 4 Medical (four) Branch hours as needed for Pain (scale 4-6) for up to 7 days. Indication s: acute pain LORazepam 2022-0 Yes lorazepam Uni vers 0.5 mg 4-10 0.5 mg ity of tablet 14:46: tablet [address] LORazepam 2022-0 Yes lorazepam Uni vers 0.5 mg 4-10 0.5 mg ity of tablet 14:46: tablet [address] LORazepam 2022-0 Yes lorazepam Uni vers 0.5 mg 4-10 0.5 mg ity of tablet 14:46: tablet [address] LORazepam 3-0 Yes lorazepam Uni vers 0.5 mg 4-10 0.5 mg ity of tablet 14:46: tablet [address] LORazepam 3-0 Yes lorazepam Uni vers 0.5 mg 4-10 0.5 mg ity of tablet 14:46: tablet [address] LORazepam 3-0 Yes lorazepam Uni vers 0.5 mg 4-10 0.5 mg ity of tablet 14:46: tablet [address] LORazepam 3-0 Yes lorazepam Uni vers 0.5 mg 4-10 0.5 mg ity of tablet 14:46: tablet [address] LORazepam 3-0 Yes lorazepam Uni vers 0.5 mg 4-10 0.5 mg ity of tablet 14:46: tablet [address] LORazepam 3-0 Yes lorazepam Uni vers 0.5 mg 4-10 0.5 mg ity of tablet 14:46: tablet [address] LORazepam 3-0 Yes lorazepam Uni vers 0.5 mg 4-10 0.5 mg ity of tablet 14:46: tablet [address] LORazepam 3-0 Yes lorazepam Uni vers 0.5 mg 4-10 0.5 mg ity of tablet 14:46: tablet [address] LORazepam 2022-0 Yes lorazepam Uni vers 0.5 mg 4-10 0.5 mg ity of tablet 14:46: tablet [address] LORazepam 3-0 Yes lorazepam Uni vers 0.5 mg 4-10 0.5 mg ity of tablet 14:46: tablet [address] LORazepam 2022-0 Yes lorazepam Uni vers 0.5 mg 4-10 0.5 mg ity of tablet 14:46: tablet [address] LORazepam 2022-0 Yes lorazepam Uni vers 0.5 mg 4-10 0.5 mg ity of tablet 14:46: tablet [address] LORazepam 2022-0 Yes lorazepam Uni vers 0.5 mg 4-10 0.5 mg ity of tablet 14:46: tablet [address] LORazepam 2022-0 Yes lorazepam Uni vers 0.5 mg 4-10 0.5 mg ity of tablet 14:46: tablet [address] LORazepam 2022-0 Yes lorazepam Uni vers 0.5 mg 4-10 0.5 mg ity of tablet 14:46: tablet [address] LORazepam 3-0 Yes lorazepam Uni vers 0.5 mg 4-10 0.5 mg ity of tablet 14:46: tablet [address] LORazepam 3-0 Yes lorazepam Uni vers 0.5 mg 4-10 0.5 mg ity of tablet 14:46: tablet [address] LORazepam 3-0 Yes lorazepam Uni vers 0.5 mg 4-10 0.5 mg ity of tablet 14:46: tablet [address] LORazepam 3-0 Yes lorazepam Uni vers 0.5 mg 4-10 0.5 mg ity of tablet 14:46: tablet [address] LORazepam 3-0 Yes lorazepam Uni vers 0.5 mg 4-10 0.5 mg ity of tablet 14:46: tablet [address] atenoloL 50 2022-0 Yes [id number] 50mg Take 1 Univers mg tablet 3-10 tablet by ity o f 00:00: mouth in [place] 00 the [facility] [place] atenoloL 50 2022-0 Yes [id number] 50mg Take 1 Univers mg tablet 3-10 tablet by ity o f 00:00: mouth in [place] 00 the Medical morning. Branch atenoloL 50 3-0 Yes [id number] 50mg Take 1 Univers mg tablet 3-10 tablet by ity o f 00:00: mouth in [place] the Medical morning. Branch atenoloL 50 3-0 Yes [id number] 50mg Take 1 Univers mg tablet 3-10 tablet by ity o f 00:00: mouth in [place] the Medical morning. Branch atenoloL 50 3-0 Yes [id number] 50mg Take 1 Univers mg tablet 3-10 tablet by ity o f 00:00: mouth in [place] the Medical morning. Branch atenoloL 50 3-0 Yes [id number] 50mg Take 1 Univers mg tablet 3-10 tablet by ity o f 00:00: mouth in [place] the Medical morning. Branch atenoloL 50 3-0 Yes [id number] 50mg Take 1 Univers mg tablet 3-10 tablet by ity o f 00:00: mouth in [place] the Medical morning. Branch atenoloL 50 3-0 Yes [id number] 50mg Take 1 Univers mg tablet 3-10 tablet by ity o f 00:00: mouth in [place] the Medical morning. Branch atenoloL 50 3-0 Yes [id number] 50mg Take 1 Univers mg tablet 3-10 tablet by ity o f 00:00: mouth in [place] the Medical morning. Branch atenoloL 50 3-0 Yes [id number] 50mg Take 1 Univers mg tablet 3-10 tablet by ity o f 00:00: mouth in [place] the Medical morning. Branch atenoloL 50 3-0 Yes [id number] 50mg Take 1 Univers mg tablet 3-10 tablet by ity o f 00:00: mouth in [place] the Medical morning. Branch atenoloL 50 2023-0 Yes [id number] 50mg Take 1 Univers mg tablet 3-10 tablet by ity o f 00:00: mouth in [place] the Medical morning. Branch atenoloL 50 3-0 Yes [id number] 50mg Take 1 Univers mg tablet 3-10 tablet by ity o f 00:00: mouth in [place] the Medical morning. Branch atenoloL 50 3-0 Yes [id number] 50mg Take 1 Univers mg tablet 3-10 tablet by ity o f 00:00: mouth in [place] 00 the Medical morning. Branch atenoloL 50 3-0 Yes [id number] 50mg Take 1 Univers mg tablet 3-10 tablet by ity o f 00:00: mouth in [place] 00 the Medical morning. Branch atenoloL 50 3-0 Yes [id number] 50mg Take 1 Univers mg tablet 3-10 tablet by ity o f 00:00: mouth in [place] 00 the Medical morning. Branch atenoloL 50 2022-0 Yes [id number] 50mg Take 1 Univers mg tablet 3-10 tablet by ity o f 00:00: mouth in [place] 00 the Medical morning. Branch atenoloL 50 3-0 Yes [id number] 50mg Take 1 Univers mg tablet 3-10 tablet by ity o f 00:00: mouth in [place] 00 the Medical morning. Branch atenoloL 50 2022-0 Yes [id number] 50mg Take 1 Univers mg tablet 3-10 tablet by ity o f 00:00: mouth in [place] 00 the Medical morning. Branch atenoloL 50 2022-0 3- No [id number] 50mg Take 1 Univers mg tablet 3-10 -05 tablet by ity of 00:00: 00:00 mouth in [place] 00 :00 the Medical morning. Branch atenoloL 50 3-0 3- No [id number] 50mg Take 1 Univers mg tablet 3-10 -05 tablet by ity of 00:00: 00:00 mouth in [place] 00 :00 the Medical morning. Branch atenoloL 50 2022-0 3- No [id number] 50mg Take 1 Univers mg tablet 3-10 03-10 tablet by ity of 00:00: 00:00 mouth in [place] 00 :00 the Medical morning. Branch atenoloL 50 2022-0 2022- No atenolol U nivers mg tablet 07-04 50 mg ity of 15:03: 00:00 tablet [place] 01 :00 TAKE 1 Medical TABLET Branch DAILY atenoloL 50 2022-0 2022- No atenolol U nivers mg tablet 07-04 50 mg ity of 15:03: 00:00 tablet [place] 01 :00 TAKE 1 Medical TABLET Branch DAILY amLODIPine 2022-0 2022- No amlodipine Univers 5 mg tablet 07-04 5 mg ity of 15:02: 00:00 tablet [place] 03 :00 TAKE 1 Medical TABLET Branch DAILY amLODIPine 2022-0 2022- No amlodipine Univers 5 mg tablet 07-04 5 mg ity of 15:02: 00:00 tablet [place] 03 :00 TAKE 1 Medical TABLET Branch DAILY hydroCHLORO 2022-0 2022- No 12.5mg Take 1 U nivers thiazide 07-04 capsule by ity of 12.5 mg 14:58: 00:00 mouth in [place] capsule 29 :00 the Medical morning. Branch hydroCHLORO 2022-0 2022- No 12.5mg Take 1 U nivers thiazide 07-04 capsule by ity of 12.5 mg 14:58: 00:00 mouth in [place] capsule 29 :00 the Medical morning. Branch LORazepam 2022-0 Yes lorazepam Uni vers 0.5 mg 3-09 0.5 mg ity of tablet 14:53: tablet [address] LORazepam 2022-0 Yes lorazepam Uni vers 0.5 mg 3-09 0.5 mg ity of tablet 14:53: tablet [address] LORazepam 2022-0 Yes lorazepam Uni vers 0.5 mg 3-09 0.5 mg ity of tablet 14:53: tablet [address] LORazepam 2022-0 Yes lorazepam Uni vers 0.5 mg 3-09 0.5 mg ity of tablet 14:53: tablet [address] LORazepam 3-0 Yes lorazepam Uni vers 0.5 mg 3-09 0.5 mg ity of tablet 14:53: tablet [address] LORazepam 2022-0 Yes lorazepam Uni vers 0.5 mg 3-09 0.5 mg ity of tablet 14:53: tablet [address] LORazepam 3-0 Yes lorazepam Uni vers 0.5 mg 3-09 0.5 mg ity of tablet 14:53: tablet [address] ARIPiprazol 3-0 Yes 5mg Take 1 Univ ers e 5 mg 3-09 tablet by ity of tablet 14:53: mouth in [place] 44 the Medical morning. Branch ARIPiprazol 3-0 Yes 5mg Take 1 Univ ers e 5 mg 3-09 tablet by ity of tablet 14:53: mouth in [place] [address] the Medical morning. Branch ARIPiprazol 2023-0 Yes 5mg Take 1 Univ ers e 5 mg 3-09 tablet by ity of tablet 14:53: mouth in [place] [address] the Medical morning. Branch ARIPiprazol 2023-0 Yes 5mg Take 1 Univ ers e 5 mg 3-09 tablet by ity of tablet 14:53: mouth in [place] [address] the Medical morning. Branch ARIPiprazol 2023-0 Yes 5mg Take 1 Univ ers e 5 mg 3-09 tablet by ity of tablet 14:53: mouth in [place] [address] the Medical morning. Branch ARIPiprazol 2023-0 Yes 5mg Take 1 Univ ers e 5 mg 3-09 tablet by ity of tablet 14:53: mouth in [place] [address] the Medical morning. Branch ARIPiprazol 2023-0 Yes 5mg Take 1 Univ ers e 5 mg 3-09 tablet by ity of tablet 14:53: mouth in [place] [address] the Medical morning. Branch ARIPiprazol 2023-0 Yes 5mg Take 1 Univ ers e 5 mg 3-09 tablet by ity of tablet 14:53: mouth in [place] [address] the Medical morning. Branch ARIPiprazol 2023-0 Yes 5mg Take 1 Univ ers e 5 mg 3-09 tablet by ity of tablet 14:53: mouth in [place] [address] the Medical morning. Branch ARIPiprazol 2023-0 Yes 5mg Take 1 Univ ers e 5 mg 3-09 tablet by ity of tablet 14:53: mouth in [place] [address] the Medical morning. Branch ARIPiprazol 2023-0 Yes 5mg Take 1 Univ ers e 5 mg 3-09 tablet by ity of tablet 14:53: mouth in [place] [address] the Medical morning. Branch ARIPiprazol 2023-0 Yes 5mg Take 1 Univ ers e 5 mg 3-09 tablet by ity of tablet 14:53: mouth in [place] [address] the Medical morning. Branch ARIPiprazol 2023-0 Yes 5mg Take 1 Univ ers e 5 mg 3-09 tablet by ity of tablet 14:53: mouth in [place] [address] the Medical morning. Branch ARIPiprazol 2023-0 Yes 5mg Take 1 Univ ers e 5 mg 3-09 tablet by ity of tablet 14:53: mouth in [place] [address] the Medical morning. Branch ARIPiprazol 2023-0 Yes 5mg Take 1 Univ ers e 5 mg 3-09 tablet by ity of tablet 14:53: mouth in [place] [address] the Medical morning. Branch ARIPiprazol 2023-0 Yes 5mg Take 1 Univ ers e 5 mg 3-09 tablet by ity of tablet 14:53: mouth in [place] [address] the Medical morning. Branch ARIPiprazol 2023-0 Yes 5mg Take 1 Univ ers e 5 mg 3-09 tablet by ity of tablet 14:53: mouth in [place] [address] the Medical morning. Branch ARIPiprazol 2023-0 Yes 5mg Take 1 Univ ers e 5 mg 3-09 tablet by ity of tablet 14:53: mouth in [place] [address] the Medical morning. Branch ARIPiprazol 2023-0 Yes 5mg Take 1 Univ ers e 5 mg 3-09 tablet by ity of tablet 14:53: mouth in [place] [address] the Medical morning. Branch ARIPiprazol 2023-0 Yes 5mg Take 1 Univ ers e 5 mg 3-09 tablet by ity of tablet 14:53: mouth in [place] [address] the Medical morning. Branch amLODIPine 2023-0 Yes [id number] 5mg Take 1 U nivers 5 mg tablet 3-09 tablet by ity of 00:00: mouth in [place] [address] the Medical morning. Branch amLODIPine 2023-0 Yes [id number] 5mg Take 1 U nivers 5 mg tablet 3-09 tablet by ity of 00:00: mouth in [place] [address] the Medical morning. Branch amLODIPine 2023-0 Yes [id number] 5mg Take 1 U nivers 5 mg tablet 3-09 tablet by ity of 00:00: mouth in [place] [address] the Medical morning. Branch amLODIPine 2023-0 Yes [id number] 5mg Take 1 U nivers 5 mg tablet 3-09 tablet by ity of 00:00: mouth in [place] [address] the Medical morning. Branch amLODIPine 2023-0 Yes [id number] 5mg Take 1 U nivers 5 mg tablet 3-09 tablet by ity of 00:00: mouth in [place] [address] the Medical morning. Branch amLODIPine 2023-0 Yes [id number] 5mg Take 1 U nivers 5 mg tablet 3-09 tablet by ity of 00:00: mouth in [place] the Medical morning. Branch amLODIPine 2023-0 Yes [id number] 5mg Take 1 U nivers 5 mg tablet 3-09 tablet by ity of 00:00: mouth in [place] the Medical morning. Branch amLODIPine 2023-0 Yes [id number] 5mg Take 1 U nivers 5 mg tablet 3-09 tablet by ity of 00:00: mouth in [place] the Medical morning. Branch amLODIPine 2023-0 Yes [id number] 5mg Take 1 U nivers 5 mg tablet 3-09 tablet by ity of 00:00: mouth in [place] the Medical morning. Branch amLODIPine 2023-0 Yes [id number] 5mg Take 1 U nivers 5 mg tablet 3-09 tablet by ity of 00:00: mouth in [place] the Medical morning. Branch amLODIPine 2023-0 Yes [id number] 5mg Take 1 U nivers 5 mg tablet 3-09 tablet by ity of 00:00: mouth in [place] the Medical morning. Branch amLODIPine 2023-0 Yes [id number] 5mg Take 1 U nivers 5 mg tablet 3-09 tablet by ity of 00:00: mouth in [place] the Medical morning. Branch amLODIPine 2023-0 Yes [id number] 5mg Take 1 U nivers 5 mg tablet 3-09 tablet by ity of 00:00: mouth in [place] the Medical morning. Branch amLODIPine 2023-0 Yes [id number] 5mg Take 1 U nivers 5 mg tablet 3-09 tablet by ity of 00:00: mouth in [place] the Medical morning. Branch amLODIPine 2023-0 Yes [id number] 5mg Take 1 U nivers 5 mg tablet 3-09 tablet by ity of 00:00: mouth in [place] the Medical morning. Branch atenoloL 50 3-0 Yes [id number] 50mg Take 1 Univers mg tablet 3-09 tablet by ity o f 00:00: mouth in [place] the Medical morning. Branch amLODIPine 2023-0 Yes [id number] 5mg Take 1 U nivers 5 mg tablet 3-09 tablet by ity of 00:00: mouth in [place] the Medical morning. Branch atenoloL 50 2023-0 Yes [id number] 50mg Take 1 Univers mg tablet 3-09 tablet by ity o f 00:00: mouth in [place] 00 the Medical morning. Branch amLODIPine 3-0 Yes [id number] 5mg Take 1 U nivers 5 mg tablet 3-09 tablet by ity of 00:00: mouth in [place] 00 the Medical morning. Branch atenoloL 50 3-0 Yes [id number] 50mg Take 1 Univers mg tablet 3-09 tablet by ity o f 00:00: mouth in [place] 00 the Medical morning. Branch amLODIPine 3-0 Yes [id number] 5mg Take 1 U nivers 5 mg tablet 3-09 tablet by ity of 00:00: mouth in [place] 00 the Medical morning. Branch amLODIPine 3-0 Yes [id number] 5mg Take 1 U nivers 5 mg tablet 3-09 tablet by ity of 00:00: mouth in [place] 00 the Medical morning. Branch amLODIPine 2022-0 Yes [id number] 5mg Take 1 U nivers 5 mg tablet 3-09 tablet by ity of 00:00: mouth in [place] 00 the Medical morning. Branch amLODIPine 3-0 3- No [id number] 5mg Take 1 Univers 5 mg tablet 07-04 tablet by it y of 00:00: 00:00 mouth in [place] 00 :00 the Medical morning. Branch amLODIPine 3-0 3- No [id number] 5mg Take 1 Univers 5 mg tablet 07-04 tablet by it y of 00:00: 00:00 mouth in [place] 00 :00 the Medical morning. Branch atenoloL 50 3-0 3- No [id number] 50mg Take 1 Univers mg tablet 07-04 tablet by ity of 00:00: 00:00 mouth in [place] 00 :00 the Medical morning. Branch atenoloL 50 3-0 3- No [id number] 50mg Take 1 Univers mg tablet 07-04- tablet by ity of 00:00: 00:00 mouth in [place] 00 :00 the Medical morning. Branch atenoloL 50 3-0 3- No [id number] 50mg Take 1 Univers mg tablet 07-04- tablet by ity of 00:00: 00:00 mouth in [place] 00 :00 the Medical morning. Branch SERTraline 2021-04 Yes Univers 100 mg 2-29 ity of tablet 00:00: [place] [address] Medical Branch SERTraline 2021-04 Yes Univers 100 mg 2-29 ity of tablet 00:00: [place] [facility] SERTraline 2021-04 Yes Univers 100 mg 2-29 ity of tablet 00:00: [place] [facility] SERTraline 2021-04 Yes Univers 100 mg 2-29 ity of tablet 00:00: [address] SERTraline 2021-04 Yes Univers 100 mg 2-29 ity of tablet 00:00: [place] [facility] SERTraline 2021-04 Yes Univers 100 mg 2-29 ity of tablet 00:00: [place] [facility] SERTraline 2021-04 Yes Univers 100 mg 2-29 ity of tablet 00:00: [address] SERTraline 2021-04 Yes Univers 100 mg 2-29 ity of tablet 00:00: [address] SERTraline 2021-04 Yes Univers 100 mg 2-29 ity of tablet 00:00: [address] SERTraline 2021-04 Yes Univers 100 mg 2-29 ity of tablet 00:00: [address] SERTraline 2021-04 Yes Univers 100 mg 2-29 ity of tablet 00:00: [address] SERTraline 2021-04 Yes Univers 100 mg 2-29 ity of tablet 00:00: [address] SERTraline 2021-04 Yes Univers 100 mg 2-29 ity of tablet 00:00: [address] SERTraline 2021-04 Yes Univers 100 mg 2-29 ity of tablet 00:00: [address] SERTraline 2021-04 Yes Univers 100 mg 2-29 ity of tablet 00:00: [address] SERTraline 2021-04 Yes Univers 100 mg 2-29 ity of tablet 00:00: [address] SERTraline 2021-04 Yes Univers 100 mg 2-29 ity of tablet 00:00: [address] SERTraline 2021-04 Yes Univers 100 mg 2-29 ity of tablet 00:00: [address] SERTraline 2021-04 Yes Univers 100 mg 2-29 ity of tablet 00:00: [address] SERTraline 2021-04 Yes Univers 100 mg 2-29 ity of tablet 00:00: [address] SERTraline 2022-1 Yes Univers 100 mg 2-29 ity of tablet 00:00: [place] [facility] SERTraline 2021-04 Yes Univers 100 mg 2-29 ity of tablet 00:00: [place] [facility] SERTraline 2021-04 Yes Univers 100 mg 2-29 ity of tablet 00:00: [place] [facility] SERTraline 2021-04 Yes Univers 100 mg 2-29 ity of tablet 00:00: [place] [facility] SERTraline 2021-04 Yes Univers 100 mg 2-29 ity of tablet 00:00: [place] [facility] SERTraline 2021-04 Yes Univers 100 mg 2-29 ity of tablet 00:00: [place] [facility] SERTraline 2021-04 Yes Univers 100 mg 2-29 ity of tablet 00:00: [place] [facility] SERTraline 2021-04 Yes Univers 100 mg 2-29 ity of tablet 00:00: [place] [facility] SERTraline 2021-04 Yes Univers 100 mg 2-29 ity of tablet 00:00: [place] [facility] SERTraline 2021-04 Yes Univers 100 mg 2-29 ity of tablet 00:00: [address] amlodipine amlodipine No amlodipine [place] 5 mg [...] every day route. route. by oral route. Vital Signs Vital Name Observation Time Observation Value Comments Source Systolic blood 2022-10-08 18:58:00 143 mm[facility]Hg[facility] Diastolic blood 2022-10-08 18:58:00 90 mm[Hg] [facility] [place] Heart rate 2022-10-08 18:55:00 62 /min [facility] Body temperature 2022-10-08 18:55:00 37.17 [facility] Respiratory rate 2022-10-08 18:55:00 15 /min [facility] Body height 2022-10-08 18:55:00 175.3 cm [facility] Body weight 2022-10-08 18:55:00 66.361 kg [facility] BMI 2022-10-08 18:55:00 21.60 kg/m2 [facility] [place] [facility] Oxygen saturation in 2022-10-08 18:55:00 98 /min [facility] of Arterial blood by [place] Medi jadyn Pulse oximetry Branch Systolic blood 2022-09-06 19:09:00 155 mm[Hg] Univer sity of pressure [place] [facility] Diastolic blood 2022-09-06 19:09:00 106 mm[Hg] Unive rsity of pressure [place] [facility] Heart rate 2022-09-06 19:09:00 75 /min [facility] [place] [facility] Body temperature 2022-09-06 19:09:00 37.17 [place] [facility] ers[facility] [place] [facility] Respiratory rate 2022-09-06 19:09:00 18 /min [facility] ersity [facility] [place] [facility] Body weight 2022-09-06 19:09:00 63.504 kg [facility] [place] [facility] BMI 2022-09-06 19:09:00 20.67 kg/m2 [facility] [place] [facility] Oxygen saturation in 2022-09-06 19:09:00 99 /min [facility] Arterial blood by [place] [facility] oximetry Branch Systolic blood 2022-07-04 20:53:00 103 mm[Hg] [facility] [place] [facility] Diastolic blood 2022-07-04 20:53:00 76 mm[Hg] [facility] [place] [facility] Heart rate 2022-07-04 20:53:00 74 /min [facility] [place] [facility] Respiratory rate 2022-07-04 20:53:00 18 /min [facility] [place] [facility] Body height 2022-07-04 20:53:00 175.3 cm [facility] [place] [facility] Body weight 2022-07-04 20:53:00 66.679 kg [facility] [place] [facility] BMI 2022-07-04 20:53:00 21.71 kg/m2 [facility] [place] [facility] Oxygen saturation in 2022-07-04 20:53:00 97 /min [facility] [place] [facility]xim[facility] BP Diastolic 2022-01-24 00:00:00 80 mm[Hg] [facility] Height 2022-01-24 00:00:00 69 [in_i] [facility] BMI (Body Mass 2022-01-24 00:00:00 22 kg/m2 [facility] BP Systolic 2022-01-24 00:00:00 127 mm[Hg] [facility] Body Weight 2022-01-24 00:00:00 2384 [oz_av] [facility] BP Diastolic 2021-08-31 00:00:00 84 mm[Hg] [facility] Height 2021-08-31 00:00:00 69 [in_i] [facility] BMI (Body Mass 2021-08-31 00:00:00 20 kg/m2 [facility] BP Systolic 2021-08-31 00:00:00 135 mm[Hg] [facility] Body Weight 2021-08-31 00:00:00 2171.2 [oz_av] [facility] BMI (Body Mass 2020-08-21 00:00:00 20.7 kg/m2 [facility] BP Systolic 2020-08-21 00:00:00 132 mm[Hg] [facility] Body Weight 2020-08-21 00:00:00 2241 [oz_av] [facility] BP Diastolic 2020-08-21 00:00:00 79 mm[Hg] [facility] Height 2020-08-21 00:00:00 69 [in_i] [facility] Height 2019-12-09 00:00:00 69 [in_i] [facility] BMI (Body Mass 2019-12-09 00:00:00 19.2 kg/m2 [facility] Body Weight 2019-12-09 00:00:00 2080 [oz_av] [facility] BP Diastolic 2019-05-27 00:00:00 96 mm[Hg] [facility] Height 2019-05-27 00:00:00 69 [in_i] [facility] BMI (Body Mass 2019-05-27 00:00:00 19.2 kg/m2 [facility] BP Systolic 2019-05-27 00:00:00 163 mm[Hg] [facility] Body Weight 2019-05-27 00:00:00 3 [oz_av] [facility] Procedures Procedure Date / Time Performing Clinician Source Performed EXTERNAL PROVIDER 2022-11-01 05:01:00 Doctor Unassigned, No [facility] RECORDS Name Medical Branch COMP. METABOLIC PANEL 2022-10-07 16:46:00 Miles Verduzco [facility] ([id number]) Medical Branch CT THORACIC SPINE WO 2022-09-06 19:54:13 Lyndon Vincent [facility] Medical Branch CONSENT/REFUSAL FOR 2022-09-06 19:03:43 Doctor Unassigned, No [facility] DIAGNOSIS AND TREATMENT Name Medical Branch REFERRAL- 2022-09-05 05:01:00 Doctor Unassigned, No [facility] REQUEST/RESPONSE Name Medical Branch BI SCREENING 2022-08-30 18:58:29 Kameron Verduzcossica [facility] [place] TOMOSYNTHESIS BILATERAL Medical Branch EXTERNAL FIT DNA 2022-08-21 15:00:00 Doctor Unassigned, No [facility] Medical [facility] MR CERVICAL SPINE WO 2022-08-15 19:56:49 Cassidy Anthony [facility] CONTRAST Medical Branch ASSIGNMENT OF BENEFITS 2022-08-15 19:16:25 Doctor Unassigned, No [facility] XR CERVICAL SPINE 4 VW 2022-08-05 21:21:26 Cassidy Anthony [facility] EXTERNAL PROVIDER 2022-08-05 05:01:00 Doctor Unassigned, No [facility] RECORDS Name Medical Branch REFERRAL- 2022-08-02 05:01:00 Doctor Unassigned, No [facility] REQUEST/RESPONSE Name Medical Branch ASSIGNMENT OF BENEFITS 2022-07-04 20:28:37 Doctor Unassigned, No [facility] Medical Branch MRI, cervical spine, w/o 2022-01-24 00:00:00 [facility] MRI, thoracic spine, w/o 2022-01-24 00:00:00 [facility] MRI, lumbar spine, w/o 2022-01-24 00:00:00 [facility] EXTERNAL LAB A1C 2021-08-31 07:05:00 Doctor Unassigned, No [facility] [place] Name Medical Branch DEXA 2021-08-31 00:00:00 [place] [facility] MAMMO, screening, 2021-08-31 00:00:00 [place] [facility] bilateral Group LDCT, chest, for lung 2021-08-31 00:00:00 [facility] cancer screening Group MAMMO, screening, 2019-05-27 00:00:00 [place] [facility], bilateral Group Tubal Ligation [facility] Delivery [facility] Breast Surgery [facility] Plan of Care Planned Activity Planned Date Details Comments Source Diagnostic Test Pending 2022-01-24 BMP, serum or [facility] 00:00:00 plasma [code = Group BMP, serum or plasma] Instructions [facility] Encounters Start End Encounter Admission Attending Care Care Encounter Source Date/Time Date/Time Type Type Clinicians Facility Department ID 2022-02-12 Inpatient [facility] [id number] [facility] 14:00:00 [id number] [facility] 2022-02-08 Inpatient [facility] [id number] [facility] 13:00:00 [id number] [facility] 2022-11-04 2022-11-04 Jono Verduzco [facility] 1.2.840.114 [id number] Univers 00:00:00 00:00:00 Miles BERRY 350.1.13.10 i ty [facility] [place] [id number] [place] dical NAL 044 [facility] 2022-11-04 2022-11-04 Patient Doctor ILMARYANNE 1.2.840.114 [id number] Univers 00:00:00 00:00:00 Secure Msg JAMAL Aguiar 350.1.13.10 ity of [place] [id number] [place] dical NAL 044 [facility] 2022-11-01 2022-11-01 Orders Doctor KIRSTIE 1.2.840.114 [id number] Univers 00:00:00 00:00:00 Only Unassigned, JEROME 350.1.13.10 ity of [place] [facility] 4.2.7.2.686 [place] as [id number] [facility] [address] 2022-10-30 2022-10-30 [facility] 1.2.840.114 [id number] Univers 00:00:00 00:00:00 Joesph BERRY 350.1.13.10 i [place] [id number] [place] dical NAL 231 [facility] 2022-10-30 2022-10-30 Patient Doctor [facility] 1.2.840.114 [id number] Univers 00:00:00 00:00:00 Secure Msg UnassignedJAMAL 350.1.13.10 [place] [id number] [place] dical NAL 044 [facility] 2022-10-22 2022-10-22 Patient Doctor KIRSTIE 1.2.840.114 [id number] Univers 00:00:00 00:00:00 Secure Msg Unassigned, JEROME 350.1.13.10 ity of [place] [facility] 4.2.7.2.686 [place] [id number] [facility] [address] 2022-10-08 2022-10-08 [facility] [id number] Univers 14:00:00 14:31:39 MILES ity of [facility] 2022-10-08 2022-10-[address] [facility] 1.2.840.114 [id number] Univers 14:00:00 14:31:39 Visit Miles BERRY 350.1.13.10 i ty [place] [id number] [place] dical NAL 044 [facility] 2022-10-08 2022-10-08 Patient Doctor KIRSTIE 1.2.840.114 [id number] Univers 00:00:00 00:00:00 Secure Msg Unassigned, JEROME 350.1.13.10 ity of [place] [facility] 4.2.7.2.686 [place] [id number] [facility] [address] 2022-10-07 2022-10-07 Tree Scout Espinoza [facility] Main [facility] 1.2.8 40.114 [id number] Univers 11:45:00 12:00:00 Visit Verduzco Miles BERRY 350.1.13.10 ity [facility] 4.2.[place] [id number] [place] dical NAL 353 [facility] 2022-10-07 2022-10-07 Outpatient R LUBA [facility] [id number] Univers 11:45:00 11:45:00 MILES mccarty [facility] 2022-09-06 2022-09-[address] [facility] ERT [id number] Univers 14:10:00 16:44:00 LYNDON lul [facility] 2022-09-06 2022-09-06 Emergency [facility] 1.2.606.111 [id number] Univers 14:10:00 16:44:00 Lyndon BERRY 350.1.13.10 i ty [place] [id number] [facility] [address] 2022-09-06 2022-09-06 Case BECKI Morrissey 1.2.840.114 [id number] Univers 00:00:00 00:00:00 Management Marilia BARAKAT 350.1.13.10 [place]y [place] [id number] [facility] [address] 2022-09-05 2022-09-05 Telephone [facility] 1.2.948.180 [id number] Univers 00:00:00 00:00:00 Miles BERRY 350.1.13.10 i ty [facility] 4[place] [id number] Ky dical NAL 044 [facility] 2022-09-05 2022-09-05 Orders Doctor KIRSTIE 1.2.840.114 [id number] Univers 00:00:00 00:00:00 Only Unassigned, JEROME 350.1.13.10 ity of [facility] 4.2.7.2.686 [place] [id number] [facility] [address] 2022-09-04 2022-09-04 Telephone [facility] 1.2.604.809 [id number] Univers 00:00:00 00:00:00 Miles JAMAL 350.1.13.10 i ty [place] [id number] [facility] 044 [facility] 2022-08-30 2022-08-30 Outpatient R [facility] [id number] Univers 13:10:21 23:59:00 MILES ity of [facility] 2022-08-30 2022-08-30 [facility] 1.2.840.114 [id number] Univers 13:10:21 23:59:00 Encounter Miles BERRY 350.1.13.[address] [facility] 4.2.7.2.686 [facility] [id number] [facility] [address] 2022-08-29 2022-08-29 Outpatient R CHRISTINE BRANTLEY [facility] [id number] Univers 12:15:00 13:20:35 ity of [facility] 2022-08-28 2022-08-28 Telephone [facility] 1.2.157.368 [id number] Univers 00:00:00 00:00:00 Miles JAMAL 350.1.13.10 i ty [place] [id number] [address] 2022-08-15 2022-08-15 Outpatient R [facility] [id number] Univers 14:20:04 23:59:00 CASSIDY ity of [facility] 2022-08-15 2022-08-15 [facility] 1.2.840.114 [id number] Univers 14:20:04 23:59:00 Encounter Cassidy BERRY 350.1.13.10 ity of [place] [id number] [facility] [address] 2022-08-15 2022-08-15 Orders Doctor KIRSTIE 1.2.840.114 [id number] Univers 00:00:00 00:00:00 Only Unassigned, JEROME 350.1.13.10 ity of [place] [facility] 4.2.7.2.686 [place] as [id number] [address] 2022-08-05 2022-08-05 [facility] 1.2.840.114 [id number] Univers 15:40:00 23:59:00 [facility] 350.1.13.10 [place].2.[place] [id number] [facility] [address] ([facility] 2022-08-05 2022-08-05 Outpatient R [facility] [id number] Univers 15:00:00 15:52:13 CASSIDY ity [facility] 2022-08-05 2022-08-05 Orders Doctor KIRSTIE 1.2.840.114 [id number] Univers 00:00:00 00:00:00 Only Unassigned, JEROME 350.1.13.10 ity of [place] [facility] 4.2.7.2.686 [place] [id number] [address] 2022-08-02 2022-08-02 Orders Doctor KIRSTIE 1.2.840.114 [id number] Univers 00:00:00 00:00:00 Only Unassigned, JEROME 350.1.13.10 ity of [place] [facility] 4.2.7.2.686 [place] [id number] [address] 2022-08-02 2022-08-02 Telephone [facility] 1.2.365.007 [id number] Univers 00:00:00 00:00:00 Miles BERRY 350.1.13.10 i ty [place] [id number] Ky dical [facility] 044 [facility] 2022-07-08 2022-07-08 Abstract [facility] 1.2.840.114 [id number] Univers 00:00:00 00:00:00 Miles BERRY 350.1.13.10 i ty of [place].2.[place] [id number] Ky dical NAL 044 [facility] 2022-07-06 2022-07-06 Patient Doctor KIRSTIE 1.2.840.114 [id number] Univers 00:00:00 00:00:00 Secure Msg Unassigned, JEROME 350.1.13.10 ity of [place] [facility] 4.2.7.2.686 [place] as [id number] [facility] [address] 2022-07-05 2022-07-05 Telephone [facility] 1.2.434.198 [id number] Univers 00:00:00 00:00:00 Miles BERRY 350.1.13.10 i ty of [place].2.[place] [id number] Ky dical NAL 044 [facility] 2022-07-05 2022-07-05 Telephone [facility] 1.2.925.159 [id number] Univers 00:00:00 00:00:00 Miles BERRY 350.1.13.10 i ty [place] [id number] Ky dicnj NAL 231 [facility] 2022-07-04 2022-07-04 Outpatient R [facility] [id number] Univers 14:30:00 15:31:28 MILES ity of [facility] 2022-07-04 2022-07-04 Office [facility] 1.2.840.114 [id number] Univers 14:30:00 15:31:28 Visit Miles BERRY 350.1.13.10 i ty of [place].2.[place] [id number] Ky dical NAL 044 [facility] 2022-07-04 2022-07-04 Orders Doctor KIRSTIE 1.2.840.114 [id number] Univers 00:00:00 00:00:00 Only Unassigned, JEROME 350.1.13.10 ity of [place] [facility] 4.2.7.2.686 [place] as [id number] [facility] [address] 2022-07-042022-07-[address] 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 2020-08-22 2020-08-22 Outpatient Zuniga_F MMG MMG [id number] [place] 10:36:00 10:36:00 0427 [facility] 2020-08-21 2020-08-21 Concepcion Zuniga_F MMG [place] - [id number] 21 [place] 00:00:00 00:00:00 Nir Jang 0426 Britton Henley MD: [address] [facility] [address], [place] [address] , Ph. 2020-03-15 2020-03-15 Outpatient Zuniga_F MMG MMG [id number] [place] 02:20:00 02:20:00 1118 [facility] 2020-02-07 2020-02-07 Outpatient Zuniga_F MMG MMG [id number] [place] 04:02:00 04:02:00 1012 [facility] 2019-12-09 2019-12-09 Concepcion Zuniga_F MMG [place] - [id number] [place] 00:00:00 00:00:00 Nir Jang 0813 Britton Henley MD: [address] [facility] [address], [place] [address] , Ph. 2019-05-29 2019-05-29 Outpatient Zuniga_F MMG MMG [id number] [place] 09:51:00 09:51:00 0201 Medical Group 2019-05-27 2019-05-27 Concepcion Zuniga_F MMG [place] - [id number] [place] 00:00:00 00:00:00 Nir Jang 0130 Britton Henley MD: [address] [place] [address], [place] [address] , Ph. 2018-10-08 2018-10-08 Outpatient Zuniga_F MMG MMG [id number] [place] 05:11:00 05:11:00 0613 Medical Group Results Test Description Test Time Test Comments Results Result Comments Source EXTERNAL FIT DNA 2022-08-27 06:30:00 Test Item Value Reference Range Interpretation Comme nts LACI Test Result Negative NEGATIV E TEST RESULT. A negative Cologuard result indicates a (test low likelihood that a colore ctal cancer (CRC) or advanced adenoma (adenomatous polyps code = with more advanced pre-malig nant features) ?is present. The chance that a person with LACI) a negative Cologuard test velez s a colorectal cancer is less than 1 in 1500 (negative predictive value >99.9%) or has an ?advanced adenoma is less than ?5.3% (negative predictive value 94.7%). The se data are based on a prospective cross-sectional study of 10,[address] risk for colorectal cancer who were screened with both Cologuard and colonoscopy. (Andrae George al, N Engl J Med 2014;370(14):3048-1448) The normal value (reference ra nge) for this assay is negative. COLOGUARD RE-SCREE IVAN RECOMMENDATION: Periodic colorectal cancer screening is an important part of prev entive healthcare for asymptomatic individuals at average risk for colorectal cancer. ?Following a negative Cologuard result, the [place] [employer] and U.S. Mult i-Society Task Force?screening guidelines recommend a Cologuard re-screening inter ladi of 3 years. References: [place] [employer] Guideline for Colorectal Cancer Screening: https://www.cancer.org/cancer/yzory-srqyxf-fhfhwx/bnvlhdigw-kxqckdkza-zlbanii/ac s-rec ommendations.html.; Waylon DK, Ana CR, Lisandra HernandezK, Colorectal Cancer Screening: Recommendations for Physicia ns and Patients from the U.S. Multi-Society Task Force on Colorectal Cancer Screening , Am J Gastroenterol ogy 2017; 112:6678-4402. TEST DESCRIPTION: Composite algor ithmic analysis of stool DNA-biomarkers with hemoglobin immunoassay. ? Quantitative values of individual biomarkers are not reportable and are not associated with arlyn vidual biomarker result reference ranges. Cologuard is intended for colorectal canc er screening of adults of either sex, 45 years or older, who are at average-risk for colorectal cancer (CRC). Cologuard has been approved for use by the U.S. FDA. The performance of Cologuard was established in a cross sectional study of average-r isk adults aged 50-84. Cologuard performance in patients ages 45 to 49 years was estimated by sub-group analysi s of near-age groups. Colonoscopies performed for a positive result ma y find as the most clinically significant lesion: colorect al cancer [4.0%], advanced adenoma (including sessile serrated polyps greater than or equal to 1cm diameter) [20%] or non- advanced adenoma [31%]; or no colorectal neoplasia [45%]. These estimat es are derived from a prospective cross-sectional screening study of 10,000 individuals at average risk for colorectal cancer who were s creened with both Cologuard and colonoscopy. (Andrae George al, N Engl J Med 2014;370(14):9547-5464.) Cologuard may produce a false negative or false positive r esult (no colorectal cancer or?precancerous polyp present at colonoscopy follow up). A negative Cologuard test result does not guarantee the absence of CRC or advanced a denoma (pre-cancer). The current Cologuard screening interval is every 3 years. ( [place] [employer] and U.S. Multi-Society Task Force). Cologuard performance data in a 10,000 patient pivotal study using colonoscopy as the reference method can be accessed at the following location: www.[employer]/results. A dditional description of the Cologuard test process, warnings and precautions can be found at www.[employer].Resulting Agency [employer] (CLIA #:[id number]) Specimen Collected: 08/21/22 10:00 Last Resulted: 08/27/22 01:30Rece ived From: [employer] Result Received: 08/29/22 12:02 Lab Normal Interp retati on (test code = 24550- 1) [id number] 07:05:00 Test Item Value Reference Range Interpretation Comments External HGB A1C (test code = 4548-4) 5.4 4.0-6.0 [facility]
[2023-03-21] MEDS ORDERED: DIAZEPAM 5 MG TABLET ONE (15:04)
[2023-03-21] MEDS ORDERED: HYDROCODONE/APAP 5/325 MG TAB ONE (15:04)
[2023-03-21 16:36] LABS: Specific Gravity 1.006 (1.005-1.030); Urine Bilirubin NEGATIVE (Negative); Urine Blood Negative (Negative); Urine Clarity Clear (Clear); Urine Color Colorless (Yellow); Urine Glucose NEGATIVE (Negative); Urine Protein NEGATIVE (Negative); Urine Urobilinogen Normal (Normal)
--- NOTE | 2023-03-21 16:37 | RAD REPORT ---
EXAM DESCRIPTION: RAD - Lumbar Spine 3 Views - 03/21/2023 3:42 pm CLINICAL HISTORY: Back pain FINDINGS: No fracture or dislocation is seen involving the lumbar spine. Mild chronic compression deformity T10 vertebral body Moderate spondylosis L5-S1. Osteoporosis
--- NOTE | 2023-03-21 17:10 | ER ---
Nurse's Notes [facility] Name: Hilda Yuan Age: 52 yrs Sex: Female : 1970 Arrival Date: 03/21/2023 Time: 13:51 Bed 11 Private MD: Diagnosis: Low back pain Presentation: 03/21 14:47 Chief complaint: Patient states: lower back pain X10 days. Pt denies any trauma or cm10 injury. Coronavirus screen: Vaccine status: Patient reports receiving the 2nd dose of the covid vaccine. Client denies travel out of the [place] in the last 14 days. Ebola Screen: Patient denies travel to an Ebola-affected area in the 21 days before illness onset. No symptoms or risks identified at this time. Initial Sepsis Screen: Does the patient meet any 2 criteria? No. Patient's initial sepsis screen is negative. Does the patient have a suspected source of infection? No. Patient's initial sepsis screen is negative. Risk Assessment: Do you want to hurt yourself or someone else? Patient reports no desire to harm self or others. Onset of symptoms was March 21, 2023. 14:47 Method Of Arrival: Ambulatory cm10 14:47 Acuity: MARTIR 4 cm10 OCEAN FISHING GUIDE: 17:37 LMP N/A - control method, Not ll1 Historical: - Allergies: 14:48 Erythromycin; vomiting; cm10 - PMHx: 14:48 Anxiety; Hypertension; Depressive disorder; cm10 - PSHx: 14:48 breast augmentation; section; dental; right arm surgery; Ligation of fallopian cm10 tube; - Immunization history:: Adult Immunizations unknown. - Social history:: Smoking status: Patient denies any tobacco usage or history of. Screenin:36 [facility] ED Fall Risk Assessment (Adult) Score/Fall Risk Level 0 - 2 = Low Risk ll1 Oriented to surroundings, Maintained a safe environment, Educated pt \T\ family on fall prevention, incl call for assistance when getting out of bed, Hourly rounding (assess needs \T\ fall precautionary measures) done. Abuse screen: Denies threats or abuse. Nutritional screening: No deficits noted. Tuberculosis screening: No symptoms or risk factors identified. Assessment: 17:34 General: Appears uncomfortable, Behavior is calm, cooperative, appropriate for age. ll1 Pain: Complains of pain in back Pain currently is 8 out of 10 on a pain scale. Quality of pain is described as aching, throbbing. Neuro: Level of Consciousness is awake, alert, obeys commands, Oriented to person, place, time, situation, Appropriate for age Moves all extremities. Full function. Vital Signs: 14:47 BP 133 / 88; Pulse 71; Resp 18; Temp 98.6; Pulse Ox 98% ; Weight 65.77 kg; Height 5 ft. cm10 9 in. ; Pain 10/10; 17:35 BP 138 / 89; Pulse 69; Resp 17; Pulse Ox 98% ; Pain 8/10; ll1 14:47 Body Mass Index 21.41 (65.77 kg, 175.26 cm) cm10 14:47 Pain Scale: Adult cm10 17:35 Pain Scale: Adult ll1 ED Course: 13:54 Patient arrived in ED. mg5 13:54 Brett Victoria DO is Attending Physician. ms3 14:45 Arm band placed on Patient placed in waiting room. cm10 14:48 Triage completed. cm10 15:43 Lumbar Spine (3 Views) XRAY In Process Unspecified. EDMS 17:09 Liban Crockett DO is Referral Physician. ms3 17:36 No provider procedures requiring assistance completed. Patient did not have IV access ll1 during this emergency room visit. 17:37 Patient has correct armband on for positive identification. Bed in low position. Call ll1 light in reach. Provided Education on: n/a. Administered Medications: 14:51 Drug: HYDROcodone-acetaminophen PO 5 mg-325 mg 1 tabs PO once Route: PO; cm10 17:38 Follow up: Response: No adverse reaction; Pain is decreased; RASS: Alert and Calm (0) ll1 14:51 Drug: Diazepam PO 5 mg PO once Route: PO; cm10 17:37 Follow up: Response: No adverse reaction; Pain is decreased; RASS: Alert and Calm (0) ll1 Medication: 17:37 VIS not applicable for this client. ll1 Outcome: 17:10 Discharge ordered by . ms3 17:36 Discharged to home ambulatory, ll1 17:36 Condition: stable 17:36 Discharge instructions given to patient, family, Instructed on discharge instructions, follow up and referral plans. medication usage, Demonstrated understanding of instructions, follow-up care, medications, Prescriptions given X 3, 17:38 Patient left the ED. ll1 Signatures: Dispatcher [employer] EDAnthony Green RN RN ll1 Brett Victoria DO DO ms3 Breann Shrestha RN RN cm10 Nidia Morel mg5 Corrections: (The following items were deleted from the chart) 14:47 14:45 Patient's name was called from ER [facility]. No response. 10 10
--- NOTE | 2023-03-21 17:10 | EDPHYS ---
Physician Documentation [facility] Name: Hilda Yuan Age: 52 yrs Sex: Female : 1970 Arrival Date: 03/21/2023 Time: 13:51 Bed 11 Private MD: ED Physician Brett Victoria HPI: 03/21 14:14 This 52 yrs old Female presents to ER via Unassigned with complaints of Back Pain. ms3 14:14 52-year-old with past medical history of hypertension presents to the emergency ms3 department for back pain has been ongoing for 10 days. Patient denies saddle anesthesia, urinary or bowel incontinence, urinary symptoms, fevers, chills, IV drug use. Patient states her pain is a 10/10 and located in her middle low back.. LABEL REMOVER: 17:37 LMP N/A - control method, Not ll1 Historical: - Allergies: 14:48 Erythromycin; vomiting; cm10 - PMHx: 14:48 Anxiety; Hypertension; Depressive disorder; cm10 - PSHx: 14:48 breast augmentation; section; dental; right arm surgery; Ligation of fallopian cm10 tube; - Immunization history:: Adult Immunizations unknown. - Social history:: Smoking status: Patient denies any tobacco usage or history of. ROS: 14:14 Constitutional: Negative for fever, and chills. Neck: Negative for injury, pain, and ms3 swelling, Cardiovascular: Negative for chest pain, and palpitations. Respiratory: Negative for shortness of breath, cough, wheezing, and pleuritic chest pain, Abdomen/GI: Negative for abdominal pain, nausea, vomiting, diarrhea, and constipation, 14:14 MS/Extremity: Negative for injury and deformity, 14:14 Back: Positive for Pain, Negative for injury or acute deformity, radiated pain, 14:14 : Negative for injury or acute deformity, urinary symptoms, Exam: 14:14 Constitutional: This is a well developed, well nourished patient who is awake, alert, ms3 and in no acute distress. Head/Face: Normocephalic, atraumatic. Neck: Trachea midline, no cervical lymphadenopathy. Supple, full range of motion without nuchal rigidity, or vertebral point tenderness. No Meningismus. Chest/axilla: Normal chest wall appearance and motion. Nontender with no deformity. Cardiovascular: Regular rate and rhythm with a normal S1 and S2. No gallops, murmurs, or rubs. Normal PMI, no JVD. No pulse deficits. Respiratory: Lungs have equal breath sounds bilaterally, clear to auscultation and percussion. No rales, rhonchi or wheezes noted. No increased work of breathing, no retractions or nasal flaring. Abdomen/GI: Soft, non-tender, with normal bowel sounds. No distension or tympany. No guarding or rebound. No evidence of tenderness throughout. Skin: Warm, dry with normal turgor. Normal color with no rashes, no lesions, and no evidence of cellulitis. 14:14 Back: pain, that is mild, of the lumbar area, ROM is normal, normal spinal alignment noted, CVA tenderness, is absent, Vital Signs: 14:47 BP 133 / 88; Pulse 71; Resp 18; Temp 98.6; Pulse Ox 98% ; Weight 65.77 kg; Height 5 ft. cm10 9 in. ; Pain 10/10; 17:35 BP 138 / 89; Pulse 69; Resp 17; Pulse Ox 98% ; Pain 8/10; ll1 14:47 Body Mass Index 21.41 (65.77 kg, 175.26 cm) cm10 14:47 Pain Scale: Adult cm10 17:35 Pain Scale: Adult ll1 MDM: 14:14 Differential diagnosis: Pyelonephritis ruptured disc, vertebral fracture. ms3 14:19 Patient medically screened. ms3 17:10 Data reviewed: vital signs, nurses notes, lab test result(s), urinalysis, radiologic ms3 studies, plain films, and as a result, I will discharge patient. I considered the following discharge prescriptions or medication management in the emergency department Medications were administered in the Emergency Department. See MAR. Independent interpretation of the following test(s) in the Emergency Department X-Ray: My interpretation is Lumbar spine x-ray images reviewed by me shows no acute fracture or malalignment. Counseling: I had a detailed discussion with the patient and/or guardian regarding the historical points, exam findings, and any diagnostic results supporting the discharge/admit diagnosis, lab results, radiology results, the need for outpatient follow up, to return to the emergency department if symptoms worsen or persist or if there are any questions or concerns that arise at home. Special discussion: I discussed with the patient/guardian in detail that at this point there is no indication for admission to the hospital. It is understood, however, that if the symptoms persist or worsen the patient needs to return immediately for re-evaluation. ED course: Discussed x-ray and urinalysis with patient. Patient to follow-up with neurosurgery as discussed. Patient understands and agrees with plan. All questions were answered. Return precautions discussed include worsening symptoms, or any other concerns. On reevaluation patient is ambulatory in the emergency department, alert, no apparent distress. 03/21 14:14 Order name: Urinalysis w/ reflexes; Complete Time: 16:50 ms3 03/21 14:14 Order name: Lumbar Spine (3 Views) XRAY; Complete Time: 16:50 ms3 Administered Medications: 14:51 Drug: HYDROcodone-acetaminophen PO 5 mg-325 mg 1 tabs PO once Route: PO; cm10 17:38 Follow up: Response: No adverse reaction; Pain is decreased; RASS: Alert and Calm (0) ll1 14:51 Drug: Diazepam PO 5 mg PO once Route: PO; cm10 17:37 Follow up: Response: No adverse reaction; Pain is decreased; RASS: Alert and Calm (0) ll1 Disposition Summary: 03/21/23 17:10 Discharge Ordered Notes: Location: Home ms3 Condition: Stable ms3 Diagnosis - Low back pain ms3 Followup: ms3 - With: Liban Crockett DO - When: 2 - 3 days - Reason: Recheck today's complaints Discharge Instructions: - Discharge Summary Sheet ms3 - Acute Back Pain, Adult ms3 Forms: - Medication Reconciliation Form ms3 - Thank You Letter ms3 - Antibiotic Education ms3 - Prescription Opioid Use ms3 - Patient Portal Instructions ms3 - Leadership Thank You Letter ms3 Prescriptions: - Ibuprofen 600 mg Oral Tablet - take 1 tablet ORAL route every 6 hours As needed take with food; 30 tablet; ms3 Refills: 0, Product Selection Permitted - Medrol (Jose) 4 mg Oral Tablets, Dose Pack - take 1 tablet ORAL route as directed - follow package instructions; 1 packet; ms3 Refills: 0, Product Selection Permitted - Cyclobenzaprine 10 mg Oral Tablet - take 1 tablet ORAL route every 8 hours As needed; 30 tablet; Refills: 0, sp3 Product Selection Permitted Signatures: Dispatcher [employer] EDSanchez Wileyus, DO DO ms3 Breann Shrestha, RN RN cm10 Anthony Campoverde RN ll1
[2023-03-21 18:11] VITALS: O2SAT 98
[2023-03-21 18:14] VITALS: BP 133/88; TEMP 98.6
== END 2023-03-21 17:38 | disposition home or self-care (01) ==
LOC: ER 13:51
DX: M54.50 Low back pain, unspecified (principal); Z88.3 Allergy status to other anti-infective agents
CPT/HCPCS: 72100; 81003; 99283